=== PATIENT | female | born 1945 | race Caucasian/White ===

== ENCOUNTER → 2017-12-28 08:33 | Outpatient (CLI) | payer MEDICARE, OTHER, SELFPAY ==
--- NOTE | 2017-12-28 08:45 | RAD_ITS ---
STUDY: X-RAY - ESOPHAGUS (BARIUM SWALLOW) WITH FLUOROSCOPY REASON FOR EXAM: Female, 72 years old. Chronic dysphasia. TECHNIQUE: 20 view(s) of the esophagus were obtained following swallowing of barium. FLUOROSCOPY TIME (if supplied): (0:28) minutes/seconds COMPARISON: None. FINDINGS: There is no demonstrated esophageal foreign body. There is no demonstrated stricture or mucosal abnormality. Normal gastroesophageal junction, without a demonstrated hiatal hernia. There is atherosclerotic calcification of the aortic arch with tortuosity of the descending aorta. Normal visualized pulmonary parenchyma. There are diffuse degenerative changes of the visualized thoracic spine. RAD/Esophagus Only IMPRESSION: Normal plain film x-ray examination (barium swallow) of the esophagus. Electronically Signed: Jhon Mccollum MD at 11:01 EST Tel [phone], Service support ,
== END ==
PROVIDERS: Family Provider Internal Medicine; PCP Internal Medicine; Visit Provider Otolaryngology Otolaryngology/Facial Plastic Surgery
DX: R05 Cough (principal)
CPT/HCPCS: 74220

== ENCOUNTER → 2018-03-11 10:20 | Outpatient (CLI) | payer MEDICARE, OTHER, SELFPAY ==
--- NOTE | 2018-03-11 10:23 | US_ITS ---
STUDY: THYROID ULTRASOUND REASON FOR EXAM: Female, 72 years old. Nodules. TECHNIQUE: Ultrasound evaluation of the thyroid was performed with real-time and static clark-scale imaging. COMPARISON: None. FINDINGS: RIGHT LOBE: The right lobe of the thyroid gland measures 5.5 x 2.6 x 2.0 cm. There is a heterogeneous echotexture. Several tiny nodules are seen no larger than 6 mm. Most of these are primarily cystic. LEFT LOBE: The left lobe of the thyroid gland measures 5.3 x 2.1 x 1.4 cm. There is a heterogeneous echotexture. Multiple tiny nodules no larger than 6 mm but there is also a 1.2 cm complex nodule. ISTHMUS: The isthmus measures 4 mm . The regional lymph nodes are normal. US/Thyroid IMPRESSION: Bilateral heterogeneous thyroid with several tiny nodules are also a 1.2 cm left thyroid lobe nodule for which annual follow-up is recommended. Electronically Signed: Judson Hines MD at 16:55 EDT , Service support ,
== END ==
PROVIDERS: Family Provider Internal Medicine; PCP Internal Medicine; Visit Provider Internal Medicine
DX: E04.1 Nontoxic single thyroid nodule (principal)
CPT/HCPCS: 76536

== ENCOUNTER → 2018-03-22 08:06 | Outpatient (CLI) | payer MEDICARE, OTHER, SELFPAY ==
--- NOTE | 2018-03-22 | ASPIG_PTH ---
PATIENT: Arcadio CASPER LOC: [facility]#:[id number] AGE/SX: 79/F ROOM: RE03/22/[address]: Dr. Marlo Rodarte MD : 1945 BED: DIS: SPEC #: [id number] RECD: 03/22/18 13:13 STATUS: TIFFANIE RETroy #: [id number] DIOGO: 03/22/18 00:[address]: Marlo Rodarte DEPT: CYTOLOGY RECD BY: Silverio Juarez ENTERED: 03/22/18 13:13 SP TYPE: ASP OUT OTHR DR: Dr. Celia Coto DO Tissues: Thyroid gland, NOS Procedures: FNA Specimen Adequacy Pap Stain (control) Special Stain Group II Surgery Specimen Level IV Diff Quik Stain (control) Cell Block Cytospin Fluid Cytology Other HEADER OPERATION: Ultrasound-guided thyroid biopsy - left PRE-OP DIAGNOSIS: Left thyroid nodule TISSUE SUBMITTED: Left thyroid nodule FNA DIAGNOSIS CYTOLOGY Left thyroid nodule, ultrasound-guided FNA (smears, cytospin and cell block): Consistent with benign follicular nodule. SJ:rg 03/27/18 COMMENT The specimen is evaluated at the time of left thyroid FNA by Dr. Calvo. Immediate Evaluation: Set #1 - A few follicular cells noted. Set #2 ? Follicular cells present. Adequate for evaluation. Please make reference to previous specimen ([id number]) FNA, left thyroid nodule with diagnosis of benign, consistent with colloid nodule and ([id number]) left thyroid nodule, ultrasound-guided FNA with diagnosis of negative for malignant cells. CYTOLOGY STUDY Slides are reviewed. The specimen is adequate for evaluation. The specimen consists of benign follicular cells and colloid. CYTOLOGY GROSS Set #1 ? 3 passes - Received is 0.4 ml of bloody fluid labeled with the patient's name, and designated left thyroid. Five imprints and five paps are made from the submitted fluid and the rest is added to CytoLyt for cell block preparation. Submitted for cytology study. Set #2 ? 2 passes - Received is 0.2 ml of bloody fluid labeled with the patient's name, and designated left thyroid. Five imprints and five paps are made from the submitted fluid and the rest is added to CytoLyt for cell block preparation. Submitted for cytology study. / ANIYA:mayo 03/22/18 TC:5 CPT: 28124, 21235, 54282, 38157, 42455
--- NOTE | 2018-03-22 08:07 | US_ITS ---
STUDY: THYROID ULTRASOUND REASON FOR EXAM: Female, 72 years old. Multinodular goiter. Ultrasound guided thyroid biopsy. TECHNIQUE: Ultrasound evaluation of the thyroid was performed with real-time and static clark-scale imaging. COMPARISON: Comparison is made with prior examination dated March 11, 2018. FINDINGS: Under direct sonographic guidance, the surgeon performed 5 aspiration biopsies of the left thyroid nodule. US/US Thyroid Biopsy IMPRESSION: Successful ultrasound-guided biopsy of the left thyroid nodule. Electronically Signed: Jhon Mccollum MD at 11:26 EDT Tel [phone], Service support ,
--- NOTE | 2018-03-22 09:08 | PCM.OPRPT ---
Problem List (1) Multinodular goiter (nontoxic) Status: Acute Report of Operation Date of Procedure: 03/22/18 Pre-Operative Diagnosis: e04.2 multinodular goiter Post-Operative Diagnosis: Same Surgery/Procedure Performed:: 04158 ultrasound-guided fine-needle aspiration of dominant left thyroid nodule Type of Anesthesia:: Local Description of Procedure: Left side of her neck was ultrasound. Nodule was identified. The skin was prepped with chlorhexidine. 1% lidocaine plain was injected. Under ultrasound guidance 5 passes with a 22-gauge needle were performed. These were all immediately given to the pathologist who said that we had adequate number of follicular cells. Sterile dressings were applied. The patient tolerated the procedure well. - Admit VTE Documentation VTE Present on Admission: No VTE Mechan Device Prophylaxis: None VTE Pharm Prophylaxis ordered?: No Reason prophylaxis not ordered:: Treatment Not Indicated
== END ==
PROVIDERS: Family Provider Internal Medicine; PCP Internal Medicine; Visit Provider Surgery
DX: E04.1 Nontoxic single thyroid nodule (principal)
CPT/HCPCS: 10022; 76942; 88108; 88161; 88172; 88305; 88313

== ENCOUNTER → 2018-04-22 07:20 | Outpatient (CLI) | payer MEDICARE, OTHER, SELFPAY ==
[2018-04-22 09:58] LABS: Absolute Lymphocyte Count 2.07 X10^3/ul (0.83-4.51); Absolute Neutrophil Count 2.5 X10^3/uL (2.0-7.7); Basophil# 0.01 X10^3/uL; Basophil% 0.2 % (0-1); Eosinophils% 1.9 % (0-5); Hematocrit 40.7 % (37-47); Hemoglobin 13.4 g/dl (12.0-15.0); Lymphocyte # 2.07 X10^3/ul (4.0); Mean Corp Hgb Conc 32.9 g/gl (32-36); Mean Corpuscular Volume 91.1 fL (81-99); Mean Platelet Vol. 8.7 fl (6.2-12.0); Monocyte# 0.51 X10^3/uL; Monocyte% 9.9 % (0-10); Neutrophil # 2.48 X10^3/uL (2.7-7.7); POSITIVE COUNT NO; POSITIVE DIFFERENTIAL NO; POSITIVE MORPHOLOGY NO; Platelet Count 293 K/mm3 (150-450); RBC Distribution Width CV 12.9 % (11.6-14.6); RBC Distribution Width SD 42.5 fl (35.1-43.9); Red Blood Count 4.47 M/mm3 (4.2-5.4); White Blood Count 5.2 K/mm3 (4.4-11.0)
[2018-04-22 10:14] LABS: Hemoglobin A1c 5.4 % (4.2-6.3)
[2018-04-22 10:16] LABS: ALB/GLOB Ratio 1.1 RATIO (0.9-2.4); AST(SGOT) 15 U/L (15-37); Alanine Aminotransfer ALT/SGPT 20 U/L (13-56); Albumin, Serum 3.9 g/dL (3.2-5.0); Alkaline Phosphatase 50 U/L (45-117); Anion Gap 9 (5-15); BUN 10 mg/dL (7-18); BUN/Creat Ratio 11.7 RATIO (10-20); Calcium,Total 8.8 mg/dL (8.5-10.1); Chloride 104 mmol/L (98-107); Cholesterol 174 mg/dL (200); Creatinine, Serum 0.86 mg/dL (0.55-1.02); EST Glomerular Filtration Rate 70 mL/min (>60); Est Glom Filt Rate - Afr Amer 84 mL/min (>60); Globulin 3.4 g/dL (2.2-4.2); Glucose 85 mg/dL (74-106); High Density Lipoprotein 58 mg/dL; Potassium 3.9 mmol/L (3.5-5.1); Protein, Total 7.3 g/dL (6.4-8.2); Sodium Level 143 mmol/L (136-145); Triglycerides 76 mg/dL; Very Low Density Lipoprotein 15 mg/dL (5-40); Vitamin B12 471 pg/mL (211-911)
[2018-04-23 09:31] LABS: Hep C Antibodies 0.1 s/co ratio (0.0-0.9)
== END ==
PROVIDERS: Family Provider Internal Medicine; PCP Internal Medicine; Visit Provider Internal Medicine
DX: E78.00 Pure hypercholesterolemia, unspecified (principal); Z11.59 Encounter for screening for other viral diseases; E53.8 Deficiency of other specified B group vitamins; I10 Essential (primary) hypertension; R73.09 Other abnormal glucose
CPT/HCPCS: 36415; 80053; 80061; 82607; 83036; 85025; 86803

== ENCOUNTER → 2018-11-28 10:10 | Outpatient (CLI) | payer MEDICARE, OTHER, SELFPAY ==
--- NOTE | 2018-11-28 10:15 | BI_ITS ---
MAMMOGRAPHY - BILATERAL SCREENING REASON FOR EXAM: Female, 73 years old. Routine annual screening examination. PERTINENT HISTORY: Non-contributory. TECHNIQUE: Digital bilateral breast sancho (3D mammographic acquisition) in the CC and MLO projections. 2-D mediolateral oblique (MLO) and craniocaudad (CC) views of both breasts were obtained. CAD: Full Field Digital Mammography with Computer Added Detection was performed. COMPARISON: Comparison is made with prior examination dated October 11, 2017 and October 10, 2016. FINDINGS: Breast Composition: There are scattered areas of fibroglandular density. There are no dominant masses or suspicious calcifications. Stable benign-appearing bilateral axillary lymph nodes. No other significant abnormalities are identified. There has been no significant change since the prior study. BI/SCREENING MAMM (CAD), BILAT IMPRESSION: Stable bilateral screening mammogram. Yearly follow-up mammogram recommended. (A) ASSESSMENT CATEGORY: BIRADS Category 2: Benign. A letter regarding these results will be sent to the patient by the facility within 30 days. Approximately 10% of breast cancers are not detected by mammography. A normal mammogram should not delay biopsy of a clinically suspicious abnormality. [id number] Electronically Signed: Jhon Mccollum MD at 14:00 EST , Service support ,
== END ==
PROVIDERS: Family Provider Internal Medicine; PCP Internal Medicine; Referring Provider Internal Medicine; Visit Provider Internal Medicine
DX: Z12.31 Encounter for screening mammogram for malignant neoplasm of breast (principal)
CPT/HCPCS: 77063; 77067

== ENCOUNTER → 2019-02-07 13:45 | Outpatient (CLI) | payer SELFPAY ==
--- NOTE | 2019-02-07 13:48 | CT_ITS ---
STUDY: CT CHEST/THORAX WITHOUT CONTRAST REASON FOR EXAM: Female, 73 years old. History of hyperlipidemia. RADIATION DOSAGE (If Supplied By Facility): CTDIvol = ( 12.19 ) mGy, DLP = ( 170.66 ) mGycm TECHNIQUE: Transaxial imaging was performed without the administration of intravenous contrast material. The lung apices are not included in the [id number] Individualized dose optimization techniques were used for this CT. COMPARISON: None. FINDINGS: 12.5 mm calcified granuloma in the posterolateral periphery of the left lower lobe at the mid chest 2.5 mm noncalcified nodule seen in the anterolateral periphery of the lingula of the left upper lobe (series 3 image 14), and nearby is a 1-2 mm anterior peripheral nodule (image 15). Very minimal scarring is seen in the inferior margin of the lingula of the left upper lobe. There is a 2.5 mm nodule in the anterolateral periphery of the right lower lobe near the pleural fissure on series 3 image 9. There is a 3 mm nodule seen in the anteromedial periphery of the right middle lobe on image 4. There is no demonstrated pleural abnormality. Normal heart size and pericardium. There is calcification in the mitral valve annulus. There are calcifications of the coronary arteries. Normal mediastinum. There are calcified left hilar lymph nodes. Normal unenhanced pulmonary arteries. There is atherosclerotic calcification of the aortic root and descending thoracic aorta. There are multi-level degenerative changes of the visualized lower thoracic spine. There are multiple punctate calcified granulomata in the spleen. CT/CCTA Calcium Scoring IMPRESSION: 1. Atherosclerotic calcifications of the coronary arteries and descending thoracic aorta noted. There is calcification in the mitral valve annulus. The heart size is normal. 2. Findings a left calcified granulomatous disease. 3. Additional sub-6 mm noncalcified nodules are seen in the bilateral lung turpin, as noted. Per Fleischner criteria, in a low-risk patient these do not require specific radiographic follow-up. In a high-risk patient, one might consider follow-up in one year to document stability. Electronically Signed: Josh Mcelroy MD at 15:46 EDT , Service support ,
--- NOTE | 2019-02-07 13:48 | CT_ITS ---
STUDY: CT CHEST/THORAX WITHOUT CONTRAST REASON FOR EXAM: Female, 73 years old. History of hyperlipidemia. RADIATION DOSAGE (If Supplied By Facility): CTDIvol = ( 12.19 ) mGy, DLP = ( 170.66 ) mGycm TECHNIQUE: Transaxial imaging was performed without the administration of intravenous contrast material. The lung apices are not included in the [id number] Individualized dose optimization techniques were used for this CT. COMPARISON: None. FINDINGS: 12.5 mm calcified granuloma in the posterolateral periphery of the left lower lobe at the mid chest 2.5 mm noncalcified nodule seen in the anterolateral periphery of the lingula of the left upper lobe (series 3 image 14), and nearby is a 1-2 mm anterior peripheral nodule (image 15). Very minimal scarring is seen in the inferior margin of the lingula of the left upper lobe. There is a 2.5 mm nodule in the anterolateral periphery of the right lower lobe near the pleural fissure on series 3 image 9. There is a 3 mm nodule seen in the anteromedial periphery of the right middle lobe on image 4. There is no demonstrated pleural abnormality. Normal heart size and pericardium. There is calcification in the mitral valve annulus. There are calcifications of the coronary arteries. Normal mediastinum. There are calcified left hilar lymph nodes. Normal unenhanced pulmonary arteries. There is atherosclerotic calcification of the aortic root and descending thoracic aorta. There are multi-level degenerative changes of the visualized lower thoracic spine. There are multiple punctate calcified granulomata in the spleen. CT/Limited Chest CT w/CCTA IMPRESSION: 1. Atherosclerotic calcifications of the coronary arteries and descending thoracic aorta noted. There is calcification in the mitral valve annulus. The heart size is normal. 2. Findings a left calcified granulomatous disease. 3. Additional sub-6 mm noncalcified nodules are seen in the bilateral lung turpin, as noted. Per Fleischner criteria, in a low-risk patient these do not require specific radiographic follow-up. In a high-risk patient, one might consider follow-up in one year to document stability. Electronically Signed: Josh Mcelroy MD at 15:46 EDT , Service support ,
[2019-02-07 14:13] VITALS: BP 185/86; PULSE 68; RESP 16; O2SAT 96; BMI 29.1
--- NOTE | 2019-02-10 08:42 | CA.SCORE ---
Calcium Scoring Date of Study:: 02/07/19 Coronary Calcium Scoring: High-resolution Computed Tomographic imaging of the chest was performed on [02/07/2019], with particular attention paid to the coronary arteries. Images from the examination were analyzed for the presence and extent of coronary artery calcification , using coronary calcium quantification software. The patient tolerated the procedure well and there were no complications. The results of the coronary calcification analysis are provided below. - Findings Left Main (LM): 402 Left Anterior Descending (LAD): 11.5 Left Circumflex (LCX): 135 Right Coronary Artery (RCA): 723 Total Agatston Score: 1,271.5 Percentile Rankin - Conclusion Calcium Scoring Interpretation: Calcium Score Interpretation 0 No identifiable atherosclerotic plaque. Very low cardiovascular disease risk. <5% chance of presence coronary artery disease A Negative Examination 1-10 Minimal Plaque burden. Significant coronary artery disease very unlikely. 11-100 Mild plaque burden. Likely mild or minimal coronary atherosclerosis. 101-400 Moderate plaque burden Moderate non-obstructive coronary artery disease highly likely. Over 400 Extensive plaque burden. High likelihood of at least one significant coronary stenosis (>50% diameter) Calcium Score: >400 High likelihood of at least one significant coronary stenosis - The above is suggestive of a very high likelihood of at least one coronary artery having more than 50% percent diameter stenosis and evidence of extensive plaque burden especially in the right coronary artery distribution.
== END ==
PROVIDERS: Family Provider Internal Medicine; PCP Internal Medicine; Referring Provider Internal Medicine; Visit Provider Internal Medicine
DX: E78.5 Hyperlipidemia, unspecified (principal)
CPT/HCPCS: 75571; 76380

== ENCOUNTER → 2019-03-06 13:44 | Outpatient (CLI) | payer MEDICARE, OTHER, SELFPAY ==
[2019-02-07 14:13] VITALS: BMI 29.1
== END ==
PROVIDERS: Family Provider Internal Medicine; PCP Internal Medicine; Referring Provider Internal Medicine; Visit Provider Internal Medicine
DX: R94.31 Abnormal electrocardiogram [ECG] [EKG] (principal); E78.00 Pure hypercholesterolemia, unspecified
CPT/HCPCS: 93306

== ENCOUNTER → 2019-03-26 08:03 | Outpatient (CLI) | payer MEDICARE, OTHER, SELFPAY ==
[2019-02-07 14:13] VITALS: BMI 29.1
--- NOTE | 2019-03-26 08:05 | US_ITS ---
STUDY: THYROID ULTRASOUND REASON FOR EXAM: Female, 73 years old. Thyroid nodule. TECHNIQUE: Ultrasound evaluation of the thyroid was performed with real-time and static clark-scale imaging. COMPARISON: Comparison is made with prior examination dated March 11, 2018 and February 27, 2017. FINDINGS: RIGHT LOBE: The right lobe of the thyroid gland is slightly enlarged and measures 5.3 cm x 2.6 cm x 1.4 cm. There is a homogeneous echotexture. Stable appearance of 3 solid and cystic nodules in the right lobe. The largest measures 3 mm x 4 mm x 3 mm. LEFT LOBE: The left lobe of the thyroid gland is slightly enlarged and measures 5.4 cm x 1.9 cm x 1.6 cm. There is a homogeneous echotexture. Stable appearance of the 3 nodular densities. The largest measures 1 cm x 1 cm x 0.8 cm. This is in the lower lobe. ISTHMUS: The isthmus measures 4.0 mm. The regional lymph nodes are normal. US/Thyroid IMPRESSION: Stable examination demonstrating 3 small nodular densities in both lobes of the thyroid gland. The patient has had prior aspiration biopsy of the left thyroid nodules. Electronically Signed: Jhon Mccollum, at 10:22 EDT , Service support ,
== END ==
PROVIDERS: Family Provider Internal Medicine; PCP Internal Medicine; Referring Provider Internal Medicine; Visit Provider Internal Medicine
DX: E04.1 Nontoxic single thyroid nodule (principal)
CPT/HCPCS: 76536

== ENCOUNTER → 2019-05-29 07:50 | Outpatient (CLI) | payer MEDICARE, OTHER, SELFPAY ==
[2019-02-07 14:13] VITALS: BMI 29.1
--- NOTE | 2019-05-29 07:52 | CT_ITS ---
STUDY: CT CHEST WITH CONTRAST REASON FOR EXAM: Female, 73 years old. Chronic cough. Multiple lung nodules. RADIATION DOSAGE (If Supplied By Facility): CTDIvol = ( 11.34 ) mGy, DLP = ( 334.69 ) mGycm TECHNIQUE: Transaxial imaging was performed following intravenous administration of 100ml IV Isovue 300. Multiplanar coronal and sagittal images were reformatted. Individualized dose optimization techniques were used for this CT. COMPARISON: Prior chest CT exam of February 07, 2019 FINDINGS: The lung turpin are well expanded without consolidation, focal atelectasis or a substantial pleural effusion. There is no demonstrated pleural abnormality. A 12 mm calcified granuloma again noted in the left lower lobe. Stable 2 mm lingular nodule, image 73 series 4. Stable nearby lingular nodule 1 to 2 mm, image 75 series 4. Stable 2.5 mm noncalcified nodule in the anterolateral right lower lobe, image 66 series 4. Stable 3 mm nodule in the anterior medial right middle lobe, image 84 series 4. Normal heart and pericardium. Coronary calcifications. Small calcified subcarinal lymph nodes. Small calcified left hilar lymph nodes. Normal enhanced pulmonary arteries. Mild calcified plaque and elongation of the thoracic aorta. Normal osseous structures. Calcified granulomata of the spleen. CT/Chest WITH Contrast IMPRESSION: No acute cardiopulmonary findings or changes. Negative for consolidation, focal atelectasis, cardiomegaly or pleural effusion. Stigmata of old granulomatous disease with calcified subcarinal lymph nodes, left hilar lymph node and a pulmonary granuloma in the left lower lobe. Granulomata of the spleen. Multiple noncalcified pulmonary nodules less than 6 mm as listed above are stable from prior exam of February 07, 2019. Mild atherosclerotic changes of the aorta. Coronary calcifications. Electronically Signed: Gracie Granados MD at 16:58 EDT , Service support ,
== END ==
PROVIDERS: Family Provider Internal Medicine; PCP Internal Medicine; Referring Provider Internal Medicine; Visit Provider Internal Medicine
DX: R91.8 Other nonspecific abnormal finding of lung field (principal)
CPT/HCPCS: 71260; Q9967

== ENCOUNTER → 2019-12-02 14:47 | Outpatient (CLI) | payer MEDICARE, OTHER, SELFPAY ==
[2019-02-07 14:13] VITALS: BMI 29.1
--- NOTE | 2019-12-02 14:50 | BI_ITS ---
MAMMOGRAPHY - BILATERAL SCREENING REASON FOR EXAM: Female, 74 years old. Routine annual screening examination. PERTINENT HISTORY: Non-contributory. TECHNIQUE: Digital bilateral breast mykel (3D mammographic acquisition) in the CC and MLO projections. 2-D mediolateral oblique (MLO) and craniocaudad (CC) views of both breasts were obtained. CAD: Full Field Digital Mammography with Computer Added Detection was performed. COMPARISON: Comparison is made with prior examination dated November 28, 2018 and October 11, 2017. FINDINGS: Breast Composition: There are scattered areas of fibroglandular density. There are no dominant masses or suspicious calcifications. No other significant abnormalities are identified. There has been no significant change since the prior study. BI/SCREEN MAMM (CAD) W/MYKEL BILAT IMPRESSION: Stable bilateral screening mammogram. Yearly follow-up mammogram recommended. (A) ASSESSMENT CATEGORY: BIRADS Category 1: Negative. A letter regarding these results will be sent to the patient by the facility within 30 days. Approximately 10% of breast cancers are not detected by mammography. A normal mammogram should not delay biopsy of a clinically suspicious abnormality. [id number] Electronically Signed: Jhon Mccollum, at 12:48 EST , Service support ,
--- NOTE | 2019-12-02 15:09 | BD_ITS ---
STUDY: DUAL ENERGY X-RAY ABSORPTIOMETRY / DXA REASON FOR EXAM: Female, 74 years old. AUDIT CONSULTANT-SURGICAL EARLY AT 36 YRS OLD -- HX OF HRT FOR SHORT WHILE -- TAKES HCTZ -- DOES LITTLE EXERCISE -- FAMILY HX OF OSTEO- MOTHER -- FRANCE OF 0.5 INCH TECHNIQUE: Bone Mineral Density (BMD) measurements of lumbar spine and bilateral hips were obtained. COMPARISON: Comparison is made with prior examination dated October 11, 2017. FINDINGS: Lumbar Spine (L1-L4): g/cm2 (0.971) / T-score (-1.6) / Z-score (0.1) Findings are suggestive of osteopenia with a moderate fracture risk. Left Femur Total: g/cm2 (0.849) / T-score (-1.3) / Z-score (0.4) Left Femoral Neck: g/cm2 (0.837) / T-score (-1.4) / Z-score (0.4) Right Femur Total: g/cm2 (0.806) / T-score (-1.6) / Z-score (0.0) Right Femoral Neck: g/cm2 (0.757) / T-score (-2.0) / Z-score (0.2) The T-Scores on the most recent prior examination were: Lumbar Spine (L1-L4): There has been worsening of bone density since the previous examination. Left Femur Total: which represents a worsening of 7.3%. Right Femur Total: which represents a worsening of 8.3%. BD/Dexa Bone Density Study IMPRESSION: The patient is considered osteopenic as outlined below according to World Joni Organization (WHO) criteria with a moderate fracture risk. There has been worsening of bone density since the previous examination. Reference Information: The T-score is the number of standard deviations above or below the standard which is normal for young adults at their peak bone mineral density. The World Health Organization (WHO) interprets the T-scores as follows: Above -1 Normal bone density Between -1 and -2.5 Osteopenia Equal to / or below -2.5 Osteoporosis As a practical clinical guideline, osteopenia may be graded as follows: Mild -1 through -1.5 Moderate -1.6 through -2.0 Severe -2.1 through -2.4 The Z-score is the number of standard deviations above or below age-matched controls. A Z-score of less than -1.5 would be considered abnormal. References: 1. NIH Osteoporosis and Related Bone Diseases http://www.osteo.org 2. International Society for Clinical Densitometry http://www.iscd.org 3. National Osteoporosis Foundation http://www.nof.org Electronically Signed: Jhon Mccollum, at 16:13 EST , Service support ,
== END ==
PROVIDERS: Family Provider Internal Medicine; PCP Internal Medicine; Referring Provider Internal Medicine; Visit Provider Internal Medicine
DX: Z12.31 Encounter for screening mammogram for malignant neoplasm of breast (principal); Z78.0 Asymptomatic menopausal state
CPT/HCPCS: 77063; 77067; 77080

== ENCOUNTER → 2020-04-01 13:51 | Outpatient (CLI) | payer MEDICARE, OTHER, SELFPAY ==
[2019-02-07 14:13] VITALS: BMI 29.1
--- NOTE | 2020-04-01 13:55 | US_ITS ---
STUDY: THYROID ULTRASOUND REASON FOR EXAM: Female, 74 years old. NODULES TECHNIQUE: Ultrasound evaluation of the thyroid was performed with real-time and static clark-scale imaging. COMPARISON: Comparison is made with prior examination of March 26, 2019. FINDINGS: RIGHT LOBE: The right lobe of the thyroid gland is enlarged and measures 5.3 cm x 2.1 cm x 1.7 cm. There is a homogeneous echotexture. Stable appearance of the 3 small solid and cystic nodules in the right lobe. The largest measures 3 mm x 3 mm x 3 mm. LEFT LOBE: The left lobe of the thyroid gland is enlarged and measures 5.5 cm x 1.9 cm x 1.7 cm. There is a homogeneous echotexture. Stable appearance of the 3 nodular densities in the left lobe. The largest is in the midportion measuring 9 mm x 9 mm x 0.7 mm. This has been biopsied previously. ISTHMUS: The isthmus measures 4.0 mm. The regional lymph nodes are normal. US/Thyroid IMPRESSION: Stable examination demonstrating small bilateral thyroid nodules. Electronically Signed: Jhon Mccollum, at 14:52 EDT , Service support ,
--- NOTE | 2020-04-01 13:55 | CT_ITS ---
STUDY: CT CHEST WITHOUT CONTRAST REASON FOR EXAM: Female, 74 years old. MULTIPLE LUNG NODULES SEEN ON CT-FOLLOW UP RADIATION DOSAGE (If Supplied By Facility): CTDIvol = ( 10.43 ) mGy, DLP = ( 308.42 ) mGycm TECHNIQUE: Transaxial imaging was performed without the administration of intravenous contrast material. Multiplanar coronal and sagittal images were reformatted. Individualized dose optimization techniques were used for this CT. COMPARISON: Comparison is made with prior examination of May 29, 2019. FINDINGS: Small bilateral axillary lymph nodes. Stable 1.8 cm x 1.4 cm well-defined nodule in the subcutaneous tissues overlying the posterior aspect of the left scapula. A similar appearing nodule measuring 7 mm is seen along the posterior lateral aspect of the right hemithorax inferiorly. Stable 12 mm calcified granuloma in the left lower lobe. Stable 2 mm noncalcified nodule in the lingular segment of the left upper lobe. Stable 2.5 mm noncalcified nodule in the anterolateral right lower lobe. There is no demonstrated pleural abnormality. There are calcifications of the coronary arteries. Stable small calcified subcutaneous carinal lymph nodes as well as calcification of the left hilar node. Normal hilar regions. Normal unenhanced pulmonary arteries. Normal aorta arch and descending thoracic aorta. There are multi-level degenerative changes of the thoracic spine. There is no demonstrated abnormality of the visualized upper abdomen. CT/Chest without Contrast IMPRESSION: Stable examination. Routine annual follow-up is recommended. Electronically Signed: Jhon Mccollum, at 14:38 EDT , Service support ,
== END ==
PROVIDERS: PCP Internal Medicine; Referring Provider Internal Medicine; Visit Provider Internal Medicine
DX: R91.8 Other nonspecific abnormal finding of lung field (principal); E04.1 Nontoxic single thyroid nodule
CPT/HCPCS: 71250; 76536

== ENCOUNTER → 2020-06-25 12:29 | Outpatient (CLI) | payer MEDICARE, OTHER, SELFPAY ==
[2019-02-07 14:13] VITALS: BMI 29.1
--- NOTE | 2020-06-25 12:32 | RAD_ITS ---
STUDY: X-RAY - LEFT FOOT CLINICAL: Female, 74 years old. Fell yesterday, pain 2-3-4 MT TECHNIQUE: 3 view(s) of the foot. COMPARISON: None. FINDINGS: Normal talus, calcaneus, and tarsal bones. Normal visualized subtalar, talonavicular, calcaneocuboid, tarsal and tarsometatarsal articulations. Nondisplaced transverse fracture through the distal shaft of the second third and fourth metatarsals. Normal metatarsophalangeal joint of the great toe. Normal tibial and fibular sesamoid bones. Normal interphalangeal joint of the great toe. Normal phalanges of the great toe. Normal second through fifth metatarsophalangeal joints. Normal interphalangeal joints and phalanges of the lesser toes. Soft tissue swelling. RAD/Foot min 3 Views IMPRESSION: Nondisplaced transverse fractures through the distal shafts of the second third and fourth metatarsals. Soft tissue swelling. Electronically Signed: Jhon Mccollum, at 12:54 EDT , Service support ,
[2020-06-25 13:56] LABS: ALB/GLOB Ratio 1.2 RATIO (0.9-2.4); AST(SGOT) 8 U/L (15-37); Alanine Aminotransfer ALT/SGPT 16 U/L (13-56); Albumin, Serum 4.1 g/dL (3.2-5.0); Alkaline Phosphatase 59 U/L (45-117); Anion Gap 6 (5-15); BUN 15 mg/dL (7-18); BUN/Creat Ratio 17.6 RATIO (10-20); Calcium,Total 9.4 mg/dL (8.5-10.1); Chloride 99 mmol/L (98-107); Creatinine, Serum 0.85 mg/dL (0.55-1.02); EST Glomerular Filtration Rate 69 mL/min (>60); Est Glom Filt Rate - Afr Amer 84 mL/min (>60); Globulin 3.5 g/dL (2.2-4.2); Glucose 91 mg/dL (74-106); Protein, Total 7.6 g/dL (6.4-8.2); Sodium Level 137 mmol/L (136-145)
== END ==
PROVIDERS: PCP Internal Medicine; Referring Provider Internal Medicine; Visit Provider Internal Medicine
DX: M79.672 Pain in left foot (principal); E87.5 Hyperkalemia; R55 Syncope and collapse
CPT/HCPCS: 73630; 80053; 84484

== ENCOUNTER → 2020-07-02 09:54 | Outpatient (CLI) | payer MEDICARE, OTHER, SELFPAY ==
[2020-06-25 13:10] VITALS: BMI 29.1
[2020-07-01 09:57] VITALS: BMI 29.1
--- NOTE | 2020-07-02 09:58 | ECHOD_ITS ---
Reason For Study: Near Syncope Procedure This was a 2D Doppler, Color Flow transthoracic echocardiogram. The study was technically difficult. Contrast injection was performed. Exam performed in department. Left Ventricle Normal LV size. The estimated ejection fraction is 60 %. No evidence for diastolic dysfunction. No regional wall motion abnormalities noted. Right Ventricle Normal RV size. Normal systolic function. Atria Normal left atrium. Normal right atrium. No doppler evidence for ASD. Mitral Valve There is moderate mitral annular calcification. There is no mitral valve stenosis. No mitral valve insufficiency. Tricuspid Valve There is no tricuspid stenosis. Trivial tricuspid valve insufficiency. Unable to estimate RV systolic pressure due to insufficient tricuspid regurgitant envelope. Aortic Valve Trisinus/trileaflet aortic valve. There is no aortic stenosis. Mild (1+) aortic valve insufficiency. Pulmonic Valve There is no pulmonic valvular stenosis. Trivial pulmonic valve insufficiency identified. Great Vessels Normal aortic root. Pericardium/Pleural No pericardial effusion. Medication 22 gauge I.V. with prn adaptor inserted into right arm. Performed a rapid injection of agitated mix of 9 cc saline and 1cc air to assess for atrial septal defect. MMode/2D Measurements & Calculations LVIDd: 4.3 cm IVSd: 1.3 cm Ao root diam: 3.3 cm LVIDs: 2.8 cm LVPWd: 1.1 cm LA dimension: 3.1 cm RVDd: 2.7 cm FS: 35.3 % LAV(MOD-bp): 35.4 ml LA A4 area: 13.7 cm2 RA A4 area: 11.6 cm2 LAV(MOD-bp) Indexed: 19.4 ml/m2 LAV(MOD-sp2): 39.2 ml LAV(MOD-sp4): 32.2 ml Time Measurements MV dec time: 0.31 sec Doppler Measurements & Calculations MV E max luiz: 69.0 cm/sec Lat Peak E' Luiz: 7.2 cm/sec Med Peak E' Luiz: 7.6 cm/sec MV A max luiz: 105.2 cm/sec E/E' lat: 9.5 E/E' med: 9.1 MV E/A: 0.66 MV V2 max: 105.3 cm/sec MV P1/2t max luiz: 70.6 cm/sec Ao V2 max: 138.9 cm/sec MV max P.4 mmHg MV P1/2t: 102.7 msec Ao max P.7 mmHg MV V2 mean: 54.6 cm/sec MV dec slope: 201.4 cm/sec2 MV mean P.4 mmHg MV V2 VTI: 26.5 cm MVA(P1/2t): 2.1 cm2 AI max luiz: 357.8 cm/sec LV V1 max: 124.5 cm/sec PA V2 max: 79.6 cm/sec AI max P.2 mmHg LV V1 max P.2 mmHg AI dec slope: 256.8 cm/sec2 AI P1/2t: 408.1 msec Interpretation Summary The estimated ejection fraction is 60 %. No evidence for diastolic dysfunction. Mild (1+) aortic valve insufficiency. Ordering Physician: Celia Coto Referring Physician: Celia Coto Performed By: Steve Taylor RCS
== END ==
PROVIDERS: PCP Internal Medicine; Referring Provider Internal Medicine; Visit Provider Internal Medicine
DX: R55 Syncope and collapse (principal)
CPT/HCPCS: 93225; 93226; 93306; A4216

== ENCOUNTER → 2020-07-29 06:32 | Outpatient (CLI) | payer MEDICARE, OTHER, SELFPAY ==
[2020-07-21 15:27] VITALS: BMI 27.4
--- NOTE | 2020-07-29 11:47 | STRESSREP ---
Stress Test Report Pharmacologic myocardial perfusion stress test. 74-year-old lady with a history of chest pain. Stress protocol: Resting EKG demonstrates normal sinus rhythm with a rate of 77 bpm normal intervals are noted resting blood pressure is 120/76 mmHg. 0.4 mg of regadenoson was infused per usual protocol followed Intravenous saline flush injection continuous EKG monitoring was performed. The maximum heart rate attained was 96 bpm which was 65% of max impacted heart rate the maximum workload was 1 metabolic equivalent. At rest there were no ST or T wave changes noted to suggest abnormal flow reserve at peak infusion nonspecific ST-T wave changes were noted did not meet the criteria for ischemia. The final blood pressure was 110/52. Myocardial perfusion protocol. 11.4 mCi of technetium 99m sestamibi was injected at rest. 0.4 mg of regadenoson was infused per usual protocol. At peak infusion 33.0 mCi of technetium 99m sestamibi was injected stress images were obtained stress and rest images were reconstructed and compared in the short axis vertical long and horizontal long axis. Gated images were also obtained Perfusion SPECT analysis: Review of the stress images demonstrate normal uptake of tracer noted in all areas of the myocardium the resting images similarly demonstrate normal uptake of tracer noted in all areas of the myocardium. No areas of reversibility are noted suggest ischemia no previous infarct is noted. Gated SPECT analysis: The gated ejection fraction is 85%. Conclusion: Normal pharmacologic myocardial perfusion stress test. Preserved ejection fraction.
== END ==
PROVIDERS: PCP Internal Medicine; Referring Provider Internal Medicine Cardiovascular Disease; Visit Provider Internal Medicine Cardiovascular Disease
DX: I25.10 Atherosclerotic heart disease of native coronary artery without angina pectoris (principal)
CPT/HCPCS: 78452; 93017; A9500; A4216; J2785

== ENCOUNTER → 2020-12-06 07:50 | Outpatient (CLI) | payer MEDICARE, OTHER, SELFPAY ==
[2020-07-21 15:27] VITALS: BMI 27.4
--- NOTE | 2020-12-06 07:54 | BI_ITS ---
MAMMOGRAPHY - BILATERAL SCREENING REASON FOR EXAM: Female, 75 years old. Routine annual screening examination. PERTINENT HISTORY: Non-contributory. TECHNIQUE: Digital bilateral breast mykel (3D mammographic acquisition) in the CC and MLO projections. 2-D mediolateral oblique (MLO) and craniocaudad (CC) views of both breasts were obtained. CAD: Full Field Digital Mammography with Computer Added Detection was performed. COMPARISON: Comparison is made with prior examination dated 12/02/2019 and 11/28/2018. FINDINGS: Breast Composition: There are scattered areas of fibroglandular density. There are no dominant masses or suspicious calcifications. Stable small benign-appearing bilateral axillary lymph nodes. No other significant abnormalities are identified. There has been no significant change since the prior study. BI/SCRN MAMM (CAD)W/MYKEL BILAT IMPRESSION: Stable bilateral screening mammogram. Yearly follow-up mammogram recommended. (A) ASSESSMENT CATEGORY: BIRADS Category 2: Benign. A letter regarding these results will be sent to the patient by the facility within 30 days. Approximately 10% of breast cancers are not detected by mammography. A normal mammogram should not delay biopsy of a clinically suspicious abnormality. [id number] Electronically Signed: Jhon Mccollum MD at 8:43 EST , Service support ,
== END ==
PROVIDERS: PCP Internal Medicine; Referring Provider Internal Medicine; Visit Provider Internal Medicine
DX: Z12.31 Encounter for screening mammogram for malignant neoplasm of breast (principal)
CPT/HCPCS: 77063; 77067

== ENCOUNTER 2020-12-13 08:30 | Outpatient (RCR) | payer MEDICARE, OTHER, SELFPAY ==
[2020-07-21 15:27] VITALS: BMI 27.4
--- NOTE | 2020-11-03 14:44 | HP.PTEVAL_ITS ---
Patient's Visit Information Arcadio CASPER is a 75 year old F referred to Physical Therapy by Dr. Katy Rodríguez DPM with a diagnosis of L 2/3/4 metatarsal fx and walkign difficulty. Date of Evaluation: 11/03/20 Physical Therapist: Keyon Rock DPT, OCS, CSCS - Visit Plan Frequency: 2-3x /Week Duration: 4-6 Weeks Plan: 2-3x/week for 4-6 weeks for. 1. PROM end range toe flexion and ext L, mobs. 2. strength L ankle focussing gastroc/soleus for push off. 3. gait training for balance challenges and confidence. 4. General functional ex progressing to [facility] for general LE strength. - Subjective Fell fainting in 100 degree weather and broke 3 bones in L foot. These are her first broken bones. That was 06/24/20. Hasn't been doing much since. Was in boot. Hurt the outside of both feet. In boot until 10/01/20 weaned out of it. Pain now is only with descending steps and is mildly uncomfortable. ALso attempting to do yoga bending toes up hurts. Not limping otherwise but seems to be flat footed more. Pain is 0-2/10 during activitiy and comfortable the rest of the time. Comfortable at night and sleeping well. Activities are not being avoiided but is worried about getting on ground and being more active in garden. Not employed. Basic aDLs are going well. Feels unsteady and was not that way prior to this fainting spell. No recent falls. No neuropathy. No spinning dizzyness. - Pain L lateral oot Pain Intensity (Out of 10): 0 Pain Intensity Range: 0, 2 - Objective Gait is I without AD but avoids end stance phase on L push off due to weakness. Trasnfers I without UE from chair. steps reciprocal with rail to descend and some pain and diminished eccentric control landing on L LE. On and off floor hesitantly but I without support, care with L toe extension in trasnition.s. Weakness is obvious in L gastroc/soleus as cannot heel raise on L. 3+ strenfgth L and 4+ R. Inv/ev L 4 adn R 4+ DF 4+ B. Knee strength flexiona nd ext 4 B. Metatarsals moving well B, toes stiff at end range of flexiona nd ext with some pain at this end range but motion WFL. Sensation LE WNL to gross light touch. reflexes 2/3 patella and achilles. Big toe strength flexion adn ext 4- and painful slightly midfoot with resisted flexion. - Balance Scores Functional Gait Assessment Score: 27 % Disability: 10.0000 - Goals Goal 1:: Single leg heel raise L to help with push off in gait pattern. Goal Time Frame: 4-6 Weeks Goal 2:: Descend steps without pain landing on L otes comfortably Goal Time Frame: 4-6 Weeks Goal 3:: I approp HEP to ensure gardening go smoothly in spring. - Rehabilitation Potential Physical Therapy Diagnosis: s/p MT fx and walking difficulty resuting. Rehabilitation Potential: Good - Anticipated Interventions Patient/Client Instruction: Educate patient on: Condition, Plan of Care For the Purpose of:: To increase ROM, To improve muscle performance and motor function, To increase tolerance to activity/condition/position, To improve gait and locomotor functions Therapeutic Exercise to Include: Strength training, Flexibilty training, Gait and locomotor training, Passive ROM, Active ROM For the Purpose of:: To decrease pain, To improve muscle performance and motor function, To increase tolerance to activity/condition/position, To improve ability of physical actions for home/community/work/leisure Manual Therapy Techniques to Include: Mobilization, Passive ROM For the Purpose of:: To decrease pain, To increase ROM Thank you for the opportunity to evaluate your patient. For Medicare and Medicare HMO plans, please review the plan of care and approve it. It will need to be FAXED BACK to us at [phone] for Medicare purposes. For Medicare only, by signing this I certify the plan of care. Please let me know if there are questions or concerns regarding this plan of care. Physician Signature: Date:
--- NOTE | 2020-11-23 13:30 | HP.PTREVAL ---
Dr. Katy Rodríguez, DPM, It has been my pleasure to treat Arcadio CASPER over the last 7 visits for L 2/3/4 metatarsal fx and walkign difficulty. Please see the progress note below for an update on the physical therapy plan of care! Subjective: Better...I can go down stairs now but it still doesn't feel great. Less foot slap. Sleep is OK. Activities are normal but admittedly iactive in winter. Looking forward to gardening adn getting on and off floor. Still feels weak. To doctor in 3 weeks. Wants to continue therapy 3 more weeks. Objective/Function: walks normal pushing off with L. Steps are reciprocal with one rail and decent eccentric lowering L. Still weak L heel raise compared to R. Functional ROM ankle. Toe ext still slightly tight especially with weight through it. Plan Plan: 2x/week for 3 weeks... 1. continue toe mobs PROM to end range extension, WB stretches of this. 2. Functional strength proprioception and L ankle. 3. Functional strength LE and core, on and off floor etc to get ready for gardening adn progress to HEP. Goals Goal 1:: Single leg heel raise L to help with push off in gait pattern. Goal Time Frame: 4-6 Weeks Goal Progress: Progressing Goal 2:: Descend steps without pain landing on L otes comfortably Goal Time Frame: 4-6 Weeks Goal Progress: Goal Met Goal 3:: I approp HEP to ensure gardening go smoothly in spring. Goal Progress: Goal Met Goal 4:: kneel on toes aand get up off floor with out pain. Goal Time Frame: 2-4 Weeks Goal Progress: NEW GOAL Anticipated Interventions Patient/Client Instruction: Educate patient on: Condition, Plan of Care For the Purpose of:: To increase ROM, To improve muscle performance and motor function, To increase tolerance to activity/condition/position, To improve gait and locomotor functions Therapeutic Exercise to Include: Strength training, Flexibilty training, Gait and locomotor training, Passive ROM, Active ROM For the Purpose of:: To decrease pain, To improve muscle performance and motor function, To increase tolerance to activity/condition/position, To improve ability of physical actions for home/community/work/leisure Manual Therapy Techniques to Include: Mobilization, Passive ROM For the Purpose of:: To decrease pain, To increase ROM Please do not hesitate to contact me at [phone] by phone or if you have questions or concerns regarding this new plan of care! Sincerely, [place]on Rock, DPT, OCS, CSCS
--- NOTE | 2020-12-13 09:14 | HP.PTDCSUM ---
It has been my pleasure to treat Arcadio CASPER referred by Dr. Katy Rodríguez DPM, with the diagnosis of L 2/3/4 metatarsal fx and walkign difficulty for a total of 12 visit(s). Discharge Date: 12/13/20 Please see the following information for a summary of their discharge status. Subjective: Pretty good. Pain is not an issue. Workout feels good. Getting stronger. Sleep is fine. Actviies are pretty nromal. L lateral oot Pain Intensity (Out of 10): 0 % Improvement: 90 Objective/Function: Walks normal, steps normal. Getting on and off the floor is hesitant but able with assist of table in stoop and through half kneel without any support. Doing well overall. Goal 1:: Single leg heel raise L to help with push off in gait pattern. Goal Progress: Goal Met Goal 2:: Descend steps without pain landing on L otes comfortably Goal Progress: Goal Met Goal 3:: I approp HEP to ensure gardening go smoothly in spring. Goal Progress: Goal Met Goal 4:: kneel on toes aand get up off floor with out pain. Goal Progress: Goal Met Plan: d/c If there are questions or concerns regarding this patient's physical therapy, please feel free to call me at [phone]. Thank you for the referral of this patient. Sincerely, Keyon Rock, DPT, OCS, CSCS
== END 2020-12-13 19:00 | disposition home or self-care (01) ==
LOC: PT 08:30
PROVIDERS: PCP Internal Medicine; Referring Provider Podiatrist; Visit Provider Podiatrist
DX: S92.322D Displaced fracture of second metatarsal bone, left foot, subsequent encounter for fracture with routine healing (principal); S92.332D Displaced fracture of third metatarsal bone, left foot, subsequent encounter for fracture with routine healing; S92.342D Displaced fracture of fourth metatarsal bone, left foot, subsequent encounter for fracture with routine healing; R26.89 Other abnormalities of gait and mobility
CPT/HCPCS: 97035; 97110; 97161; 97164

== ENCOUNTER → 2021-04-15 08:04 | Outpatient (CLI) | payer MEDICARE, OTHER, SELFPAY ==
[2021-02-28 14:28] VITALS: BMI 27.4
== END ==
LOC: LAB.FUTURE 08:07 → LAB 08:09
PROVIDERS: PCP Internal Medicine; Referring Provider Nurse Practitioner; Visit Provider Nurse Practitioner
DX: E87.5 Hyperkalemia (principal)
CPT/HCPCS: 36415; 84132

== ENCOUNTER → 2021-04-27 13:25 | Outpatient (CLI) | payer MEDICARE, OTHER, SELFPAY ==
[2021-02-28 14:28] VITALS: BMI 27.4
--- NOTE | 2021-04-27 13:29 | US_ITS ---
STUDY: THYROID ULTRASOUND REASON FOR EXAM: Female, 75 years old. Thyroid nodule for follow-up. TECHNIQUE: Ultrasound evaluation of the thyroid was performed with real-time and static clark-scale imaging. COMPARISON: April 01, 2020. March 26, 2019. FINDINGS: RIGHT LOBE: The right lobe of the thyroid gland is enlarged and measures 5.3 x 2.3 x 1.5 cm. There is a homogeneous echotexture. Solid and/or cystic nodules mid pole measuring 0.3 x 0.3 x 0.2 cm, 0.4 x 0.3 x 0.3 cm and 0.3 x 0.3 x 0.3 cm. LEFT LOBE: The left lobe of the thyroid gland is enlarged and measures 5.2 x 2.0 x 1.3 cm. There is a homogeneous echotexture. Upper cystic, mid solid and lower pole solid nodules respectively, measuring 0.3 x 0.3 x 0.2 cm, 0.9 x 0.7 x 0.5 cm and 0.5 x 0.5 x 0.4 cm. As per the security rep report April 01, 2020 the mid pole nodule has been biopsied. ISTHMUS: The isthmus measures 3 mm. . The regional lymph nodes are normal. US/Thyroid IMPRESSION: Thyromegaly not significantly changed. Bilateral thyroid nodules not significantly changed since February 2019. Electronically Signed: Jason Tran MD at 5:46 EDT , Service support ,
--- NOTE | 2021-04-27 13:29 | CT_ITS ---
STUDY: CT CHEST WITHOUT CONTRAST REASON FOR EXAM: Female, 75 years old. MULTIPLE NODULES RADIATION DOSAGE (If Supplied By Facility): CTDIvol = ( 11.66 ) mGy, DLP = ( 372.99 ) mGycm TECHNIQUE: Transaxial imaging was performed without the administration of intravenous contrast material. Multiplanar coronal and sagittal images were reformatted. Individualized dose optimization techniques were used for this CT. COMPARISON: Comparison is made with prior study dated 04/01/2020. FINDINGS: Stable small bilateral axillary lymph nodes. Once again, there is a 1.8 cm x 1.4 cm well-defined hypodense nodule in the subcutaneous tissues overlying the posterior aspect of the left scapula. A similar appearing nodule measuring 7 mm also seen along the posterolateral aspect of the right hemithorax inferiorly. Stable 1.2 cm calcified granuloma in the lateral aspect of the left lower lobe as seen on axial image #42. Stable 2 mm noncalcified nodule in the lingular segment of the left upper lobe. Stable 2.5 mm noncalcified nodule in the anterior lateral aspect of the right lower lobe. There is no demonstrated pleural abnormality. There are calcifications of the coronary arteries. Normal mediastinum. Normal hilar regions. Normal unenhanced pulmonary arteries. Normal aorta arch and descending thoracic aorta. There are multi-level degenerative changes of the thoracic spine. There is no demonstrated abnormality of the visualized upper abdomen. CT/Chest without Contrast IMPRESSION: Stable examination. Electronically Signed: Jhon Mccollum MD at 15:49 EDT , Service support ,
== END ==
PROVIDERS: PCP Internal Medicine; Referring Provider Internal Medicine; Visit Provider Internal Medicine
DX: E04.1 Nontoxic single thyroid nodule (principal); R91.8 Other nonspecific abnormal finding of lung field
CPT/HCPCS: 71250; 76536

== ENCOUNTER 2021-06-03 07:20 | Observation (INO) | payer MEDICARE, OTHER, SELFPAY ==
[2021-02-28 14:28] VITALS: BMI 27.4
[2021-06-03] VITALS (18 sets, daily range): BP systolic 127–182; BP diastolic 63–97; PULSE 67–88; RESP 15–22; TEMP 36.4–36.6; O2SAT 85–100; BMI 28.8; BMI 28.3
--- NOTE | 2021-06-03 07:28 | ED.RN ---
DR. MATT INFORMED OF PT PRESENTING SX ON TRIAGE. STROKE ALERT INITIATED.
--- NOTE | 2021-06-03 07:31 | RAD_ITS ---
EXAM DESCRIPTION: PORTABLE AP CHEST CLINICAL HISTORY: 75 years Female, Neuro deficit, acute, stroke suspected Neuro deficit, acute, stroke suspected COMPARISON: Previous CT scan of the chest obtained on 04/27/2021 FINDINGS: The thorax is intact. The heart and mediastinum appear to be within normal limits. The lungs appear to be well areated without evidence of pneumonic consolidation or pleural effusion. Calcified granulomas again seen in the left midlung which is unchanged. RAD/Chest 1 View IMPRESSION: No acute pathology. Electronically Signed: Earnest Machuca DO at 9:13 EDT Tel , Service support ,
--- NOTE | 2021-06-03 07:31 | EKG12_ITS ---
Test Reason : Blood Pressure : / mmHG Vent. Rate : 077 BPM Atrial Rate : 077 BPM P-R Int : 184 ms QRS Dur : 088 ms QT Int : 394 ms P-R-T Axes : 063 001 049 degrees QTc Int : 445 ms Normal sinus rhythm Normal ECG Confirmed by LAURA GORDON, AMANDA ([id number]), editor & co founder KELVIN LEWIS ([id number]) on 06/06/2021 9:10:04 AM Referred By: SHAKA Confirmed By:AMANDA SANCHEZ MD
--- NOTE | 2021-06-03 07:31 | CT_ITS ---
EXAM DESCRIPTION: Unenhanced CT scan of the head CLINICAL HISTORY: 75 years Female, Neuro deficit, acute, stroke suspected COMPARISON: None. TECHNIQUE: A CT scan of the head was performed without IV contrast in the axial plane. Coronal and sagittal reconstruction images were also obtained. This exam was performed according to our departmental dose-optimization program, which includes automated exposure control, adjustment of the mA and/or kV according to patient size and/or use of iterative reconstruction technique. FINDINGS: The gavi, medulla, and cerebellum appear to be normal. The ventricles and sulci are normal in size and shape. The basal ganglia appear to be normal. The inner and outer tables of the skull are intact. The frontal, ethmoid, maxillary, and sphenoid sinuses are normal. The mastoid air cells are normal. CT/STROKE Brain/Head without Cont IMPRESSION: Normal CT scan of the head. N.B. : The above Results were Read Back by Earnest Machuca DO to MARCIA MATT and understanding confirmed on 06/03/2021 07:49:53 (ET). Pending Final Proof Editing
--- NOTE | 2021-06-03 07:33 | EDS_ITS ---
HPI History of Present Illness Chief Complaint: Weakness Informant: patient Narrative Narrative: Patient woke up this morning at approximately 530. When she went to the restroom she realized that her right hand/arm coordination was not quite correct. She had no trouble walking. She has no trouble understanding or speaking. Vision is fine. She denies any pain anywhere in her body. There is no tingling that she notices. She states her hand strength seems okay but her coordination of the right upper extremity is off. Once she was holding the phone, she was able to text with her thumb but it was harder to get the phone in her hand. Nothing makes this better or worse. She went to bed at about 1030 last night and was normal at that time so that is her last known well time. She has never had symptoms like this before. She does have stroke risk factors of cholesterol and blood pressure. She has never had stroke symptoms or prior known stroke. [facility] Medical History (Updated 06/03/21 @ 09:[address] Pedro Matt MD) Allergic rhinitis Asthma Atherosclerotic heart disease of [place] coronary artery without angina pectoris Essential (primary) hypertension GERD (gastroesophageal reflux disease) Hematuria Hemorrhoids Hyperlipidemia Metatarsal fracture Multinodular goiter (nontoxic) Osteopenia Thyroid nodule Home Medications cholecalciferol (vitamin D3) 50 mcg (2,000 unit) capsule 4,000 unit PO QDAY cap 03/19/18 [History Last Taken Unknown] cyanocobalamin (vitamin B-12) 1,000 mcg capsule 1,000 mcg PO QDAY 03/19/18 [History Last Taken Unknown] amlodipine 2.5 mg tablet 2.5 mg PO DAILY tab 07/21/20 [History Last Taken Unknown] hydrochlorothiazide 25 mg tablet 25 mg PO DAILY tab 07/21/20 [History Last T aken Unknown] simvastatin 10 mg tablet 10 mg PO DAILY 02/28/21 [History Last Taken Unknown] Allergy/AdvReac Type Severity Reaction Status Date / Time estrogens, conjugated AdvReac myalgias Verified 06/03/21 07:21 [From Premarin] Family History Father Heart disease Hypertension Cancer Skin CAD (coronary artery disease) CABG Sister Heart disease Hypertension Cancer Skin CAD (coronary artery disease) CABG valve Sister Heart disease Mother Heart disease CAD (coronary artery disease) Other Myocardial infarction Surgical History Hx of hysterectomy Hx of tonsillectomy Social History Smoking Status: Never smoker second hand exposure: No alcohol intake: never substance use type: does not use caffeine: Yes what type of physical activity do you participate in: walking frequency: 3-4 times per week seatbelt use: always ROS ROS ED Constitutional Constitutional ED: Denies chills or fever(s) Eyes Eyes: Denies blurry vision or change in vision ENT ENT ED: Denies rhinorrhea or sore throat Cardiovascular Cardiovascular: Denies chest pain or palpitations Respiratory/Chest Respiratory/Chest: Denies dyspnea Gastrointestinal Gastrointestinal: Denies nausea or vomiting Genitourinary Genitourinary ED: Denies hematuria Musculoskeletal Musculoskeletal: Denies back pain or neck pain Integumentary Denies rash Neurologic Neurologic: Reports weakness; Denies headache(s) or paresthesias Hematologic/Lymphatic Hematologic/Lymphatic: Denies easy bleeding or easy bruising Allergic/Immunologic Allergic/Immunologic ED: Denies urticaria EXAM Physical Exam Const Vital Signs: 06/03/21 07:21 06/03/21 07:30 06/03/21 07:37 Temperature 97.5 F L Temperature Source Temporal Pulse Rate 81 81 Respiratory Rate 16 16 Respiratory Effort Respiratory Pattern Blood Pressure 182/80 H 167/87 H Blood Pressure Mean 114 113 Pulse Ox 96 96 96 Oxygen Delivery Method Room Air Room Air Room Air 06/03/21 07:51 06/03/21 07:54 06/03/21 08:15 Temperature Temperature Source Pulse Rate 79 79 Respiratory Rate 22 H 16 Respiratory Effort Normal Non-Labored Respiratory Pattern Normal Blood Pressure 168/81 H 163/97 H Blood Pressure Mean 110 119 Pulse Ox 100 98 Oxygen Delivery Method Room Air 06/03/21 09:02 Temperature Temperature Source Pulse Rate 69 Respiratory Rate 16 Respiratory Effort Respiratory Pattern Blood Pressure 165/71 H Blood Pressure Mean 102 Pulse Ox 98 Oxygen Delivery Method Positive well nourished and well developed General Appearance ED: well developed and NAD HEENT Reports moist mucous membranes Eyes PERRL and EOMs intact bilaterally Eyes Narrative: Visual turpin normal by confrontation. Neck supple Chest Wall inspection of chest normal Resp normal respiratory effort and clear to auscultation bilaterally Auscultation: diminished lung sounds Cardio Rate: regular rate Rhythm: regular rhythm GI normal to inspection, nondistended, normoactive bowel sounds, soft to palpation and non-tender Bladder / Kidney Exam: other Back/Spine no CVA tenderness Neuro oriented x3 Sensorium / Orientation: alert Psych mental status grossly normal Skin Rashes: no rashes STROKE Vital Signs/Narrative: Vital Signs Temp Pulse Resp BP Pulse Ox 06/03/21 08:15 79 16 163/97 H 98 06/03/21 07:51 79 22 H 168/81 H 100 06/03/21 07:37 96 06/03/21 07:30 81 16 167/87 H 96 06/03/21 07:21 97.5 F L 81 16 182/80 H 96 NIHSS Initial: 1a Level of Consciousness: 0 1b LOC Questions (Score 2 if aphasic/stupor): 0 1c LOC Commands (Only score 1st attempt): 0 2 Best Gaze (If aphasic, use reflexive mvmts.): 0 3 Visual: 0 4 Facial Palsy: 0 5 Motor Arm Right (UN = amputation/fusion): 0 5 Motor Arm Left: 0 6 Motor Leg Right: 0 6 Motor Leg Left: 0 7 Limb ataxia (Only + if out of proportion): 1 (Some past pointing and discoordination with right upper extremity.) 8 Sensory (Aphasia/stupor=0 or 1, coma=2): 0 9 Best Language: 0 10 Dysarthria (mute, coma=2, intubated=UN): 0 11 Extinction and Inattention (only scored if +): 0 Total Score: 1 MDM MDM MDM Narrative Medical decision making narrative: We had teleneurology evaluate her. They agree that this likely is stroke but due to the timing and severity it is not appropriate to TPA. Her CT and CT angiogram showed no acute process. Blood work including CBC and electrolytes show no marked abnormalities. She has minimally low calcium that I do not think is the cause of her symptoms. With her new stroke symptoms, no anticoagulation including no aspirin, I think she does warrant further evaluation. I have hospitalist on page. Lab Data Labs: Laboratory Results - last 24 hr 06/03/21 06/03/21 06/03/21 07:30 07:45 07:45 WBC 5.3 RBC 3.98 L Hgb 12.4 Hct 37.4 MCV 94.0 MCH 31.2 MCHC 33.2 RDW Std Deviation 44.0 H RDW Coeff of Ruslan 12.6 Plt Count 253 MPV 8.6 Immature Gran % (Auto) 0.400 Neut % (Auto) 58.4 Lymph % (Auto) 30.3 Morton % (Auto) 9.2 Eos % (Auto) 1.3 Baso % (Auto) 0.4 Absolute Neuts (auto) 3.1 Absolute Lymphs (auto) 1.61 Nucleated RBC % 0 PT 14.1 INR 1.2 APTT 31.2 Sodium Potassium Chloride Carbon Dioxide Anion Gap BUN Creatinine Estim Creat Clear Calc Est GFR (MDRD) Af Amer Est GFR (MDRD) Non-Af BUN/Creatinine Ratio Glucose Calcium Magnesium Troponin I High Sens POC Glucose 90 06/03/21 06/03/21 07:45 07:45 WBC RBC Hgb Hct MCV MCH MCHC RDW Std Deviation RDW Coeff of Ruslan Plt Count MPV Immature Gran % (Auto) Neut % (Auto) Lymph % (Auto) Morton % (Auto) Eos % (Auto) Baso % (Auto) Absolute Neuts (auto) Absolute Lymphs (auto) Nucleated RBC % PT INR APTT Sodium 138 Potassium 3.8 Chloride 102 Carbon Dioxide 31.0 Anion Gap 5 BUN 14 Creatinine 0.72 Estim Creat Clear Calc 44.41 Est GFR (MDRD) Af Amer 102 Est GFR (MDRD) Non-Af 84 BUN/Creatinine Ratio 19.5 Glucose 93 Calcium 8.2 L Magnesium 2.2 Troponin I High Sens 5.5 POC Glucose Radiography Diagnostic Testing: Radiology Impression Brain CT 06/03/21 07:31 IMPRESSION: Normal CT scan of the head. N.B. : The above Results were Read Back by Earnest Machuca DO to PEDRO MATT and understanding confirmed on 06/03/2021 07:49:53 (ET). Pending Final Proof Editing ADDENDUM: 06/03/21 0759 IMPRESSION: Normal CT scan of the head. N.B. : The above Results were Read Back by Earnest Machuca DO to PEDRO MATT and understanding confirmed on 06/03/2021 07:49:53 (ET). Pending Final Proof Editing ADDENDUM: 06/03/21 0807 IMPRESSION: Normal CT scan of the head. N.B. : The above Results were Read Back by Earnest Machuca DO to PEDRO MATT and understanding confirmed on 06/03/2021 07:49:53 (ET). Electronically Signed: Eanrest Machuca DO at 7:53 EDT Tel , Service support , Chest X-Ray 06/03/21 07:31 IMPRESSION: No acute pathology. Electronically Signed: Earnest Machuca DO at 9:13 EDT Tel , Service support , Head/Neck CTA 06/03/21 07:39 IMPRESSION: 1.Normal CTA of the Head 2.Normal CTA of the Vertebral Arteries. 3.Minimal, 5% stenosis of the right internal carotid artery at it''s origin. 4.Minimal, 10% stenosis of the left internal carotid artery at it''s origin. N.B. : The above Results were Read Back by Earnest Machuca DO to Pedro Matt MD, and understanding confirmed on 06/03/2021 08:14:29 (ET). Electronically Signed: Earnest Machuca DO at 8:16 EDT Tel , Service support , ADDENDUM: 06/03/21 0823 IMPRESSION: 1.Normal CTA of the Head 2.Normal CTA of the Vertebral Arteries. 3.Minimal, 5% stenosis of the right internal carotid artery at it''s origin. 4.Minimal, 10% stenosis of the left internal carotid artery at it''s origin. N.B. : The above Results were Read Back by Earnest Machuca DO to Pedro Matt MD, and understanding confirmed on 06/03/2021 08:14:29 (ET). Electronically Signed: Earnest Machuca DO at 8:16 EDT Tel , Service support , EKG Initial EKG: Comments: EKG done for work-up of stroke symptoms read by me shows a normal sinus rhythm with rate of 77. Mild irregular baseline but no ectopy. No acute ST elevation or depression. TX interval, QRS duration and QTC are normal. Discharge Plan Dx/Rx/DC Orders Clinical Impression: Acute CVA (cerebrovascular accident) Disposition Disposition: Acute Care Hospital [facility] Discharge Date/Time: 06/03/21 10:23
[2021-06-03 07:35] LABS: Bedside Glucose 90 mg/dL (70-110)
--- NOTE | 2021-06-03 07:39 | CT_ITS ---
EXAM DESCRIPTION: CT of the head and neck CLINICAL HISTORY: 75 years Female, CVA COMPARISON: Unenhanced CT scan of the head obtained immediately prior to this study. TECHNIQUE: A CTA of the Head and Neck was performed first without than with IV contrast, in the axial plane. Multiplanar CT reconstruction images were performed and later 3D volumetric reconstruction images were obtained This exam was performed according to our departmental dose-optimization program, which includes automated exposure control, adjustment of the mA and/or kV according to patient size and/or use of iterative reconstruction technique. FINDINGS: The pre and post contrast CT images of the head were obtained and reviewed. The gavi, medulla, and cerebellum appear to be normal. The cerebral hemispheres and the ventricles and cerebral sulci are normal. The basal ganglia are normal. No enhancing masses or lesions are seen. Bone scanning windows were reviewed and show the inner and outer tables of the skull to be intact. The frontal, ethmoid, maxillary, and sphenoid sinuses are normal. Post contrast CTA images were then reviewed. Posterior Cerebral Circulation: The V4 segments of the vertebral arteries show a normal appearing left vertebral artery. There is a vascular variation where the right vertebral artery supplies only the right PICA.. The basilar artery is normal. The [right and left] anterior inferior cerebellar artery is normal. The anterior superior cerebellar arteries are seen at their origins and are normal. The P1, P2, and P3 segments of the [right and left] posterior cerebral arteries are normal. Anterior Cerebral Circulation: There is minimal concentric calcific arteriosclerosis involving the cavernous carotid arteries at the supraclinoid carotid arteries appear to be normal.. The A1 segments of the [right and left] anterior cerebral arteries are normal. The anterior communicating artery are normal. The M1 segments of the [right and left] cerebral arteries are normal. The bifurcations of the middle cerebral arteries are normal. Cerebral Venous Circulation: The superior sagittal sinus is normal. The inferior sagittal sinus is normal. The internal cerebral veins, great vein of Edi, straight sinus, and torcula are normal. The transverse sinuses and sigmoid sinuses are normal. The CT scan of the neck, and CTA of the carotid and vertebral arteries was performed. The base of the skull, the mandible and the lung apices are normal. The cervical vertebra are normal and are in good position and alignment. Cervical Soft Tissues. The parotid space, buccal space, creative lead space, retropharnygeal space, parapharyngeal space, parapharyngeal mucosal space, and visceral space are normal. The carotid space is normal. The thyroid is normal. The thoracic inlet is normal. The supraclavicular space is normal. The nasopharynx and torus tuberous, the oropharynx and epiglottis, and the hypopharynx and aryepiglottic folds are normal. The true vocal cords and false cords are normal. The cervical trachea is normal. CTA images of the neck were reviewed and show a normal branch pattern of the aortic arch with a normal branch pattern. The right inominate artery is normal. The right subclavian artery is normal. The left common carotid artery is normal at its origin. The left subclavian artery is normal at its origin. On the right side, the right vertebral artery originates from the right subclavian artery. The V1, V2, V3, and V4 segments of the right vertebral artery are normal. The right common carotid artery is smooth. The right carotid bifurcation contains calcific arteriosclerosis causing minimal (less than 5% by NASA criteria) stenosis of the origin of the right internal carotid artery. The right external carotid artery is normal. The cervical and petrous portions of the right internal carotid artery are normal. On the left side, the left vertebral artery originates from the left subclavian artery. The V1,V2, V3, and V4 segments of the left vertebral artery are normal. The left common carotid artery is smooth. The left carotid bifurcation is normal. The left external carotid artery is normal. The origins of the left internal carotid artery contains calcific arteriosclerosis causing minimal,(less than 10% by NASA criteria), stenosis of the origin of the left internal carotid artery and the cervical and petrous portions of the left internal carotid artery are normal. These results were called to Dr. Pedro Lopez in ER at 8:[address]/STROKE CTA Head AND Neck W/Con IMPRESSION: 1.Normal CTA of the Head 2.Normal CTA of the Vertebral Arteries. 3.Minimal, 5% stenosis of the right internal carotid artery at it''s origin. 4.Minimal, 10% stenosis of the left internal carotid artery at it''s origin. N.B. : The above Results were Read Back by Earnest Machuca DO to Pedro Lopez MD, and understanding confirmed on 06/03/2021 08:14:29 (ET). Electronically Signed: Earnest Machuca DO at 8:16 EDT Tel , Service support ,
[2021-06-03 08:01] LABS: Absolute Lymphocyte Count 1.61 X10^3/uL (0.83-4.51); Absolute Neutrophil Count 3.1 X10^3/uL (2.0-7.7); Basophil# 0.02 X10^3/uL; Basophil% 0.4 % (0-1); Eosinophil# 0.07 X10^3/uL; Eosinophils% 1.3 % (0-5); Hematocrit 37.4 % (37-47); Hemoglobin 12.4 g/dL (12.0-15.0); Lymphocyte # 1.61 X10^3/ul (0.83-4.51); Lymphocyte % 30.3 % (19-41); Mean Corp Hgb Conc 33.2 g/dL (32-36); Mean Corpuscular Hgb 31.2 pg (27.0-32.0); Mean Platelet Vol. 8.6 fl (6.2-12.0); Monocyte# 0.49 X10^3/uL; Monocyte% 9.2 % (0-10); NRBC Flagged by Analyzer 0 % (0-5); Neutrophil % 58.4 % (47-70); Platelet Count 253 K/mm3 (150-450); RBC Distribution Width CV 12.6 % (11.6-14.6); Red Blood Count 3.98 M/mm3 (4.2-5.4); White Blood Count 5.3 K/mm3 (4.4-11.0)
[2021-06-03 08:13] LABS: International Normalized Ratio 1.2; Prothrombin Time (Protime)PT. 14.1 SECONDS (11.7-14.9)
[2021-06-03 08:14] LABS: Partial Thromboplast Time 31.2 Seconds (24.1-36.2)
[2021-06-03 08:18] LABS: Anion Gap 5 (5-15); BUN 14 mg/dL (7-18); BUN/Creat Ratio 19.5 RATIO (10-20); Calcium,Total 8.2 mg/dL (8.5-10.1); Chloride 102 mmol/L (98-107); Creatinine, Serum 0.72 mg/dL (0.55-1.02); EST Glomerular Filtration Rate 84 mL/min (>60); Est Glom Filt Rate - Afr Amer 102 mL/min (>60); Estimated Creatinine Clearance 44.41 ml/min; Glucose 93 mg/dL (74-106); Potassium 3.8 mmol/L (3.5-5.1); Sodium Level 138 mmol/L (136-145); Troponin-I HS 5.5 pg/mL (3.0-53.7)
--- NOTE | 2021-06-03 09:15 | MRI_ITS ---
STUDY: MRI BRAIN WITHOUT CONTRAST REASON FOR EXAM: Female, 75 years old. CVA, rt hand weakness TECHNIQUE: Standardized multiplanar fat and water weighted pulse sequences were obtained. COMPARISON: CT 06/03/2021 FINDINGS: Normal size of the ventricles and extra-axial spaces for the patient''s age. Normal white matter tracts of the supratentorial brain. There is no evidence for recent intracranial ischemia or other cause of cytotoxic edema on diffusion weighted imaging (DWI). Normal T2* images of the brain without demonstrated susceptibility artifact. There is no demonstrated hemosiderin stain. Normal bilateral basal ganglia. Normal thalami. There is no extra-axial fluid accumulation. Normal flow voids within the major intracranial circulation suggesting patency by spin echo criteria. Normal sella turcica, pituitary gland, infundibular stalk, optic chiasm and hypothalamus. Normal tectal plate and pineal gland. Normal midbrain, gavi and medulla. Normal cerebellum. Normal basal cisterns. Normal bilateral temporal bones. Normal bilateral internal auditory canals. There are bilateral ocular lens implants with otherwise normal intraorbital contents. Normal visualized paranasal sinuses. Normal calvarium and skull base. Normal visualized soft tissue structures. Normal visualized upper cervical spine. MRI/Brain without Contrast IMPRESSION: Normal unenhanced MRI of the brain. No acute infarct. Electronically Signed: Cameron Ayala MD at 16:25 EDT Tel , Service support ,
--- NOTE | 2021-06-03 09:15 | ECHOCS_ITS ---
Reason For Study: TIA/CVA Procedure This was a 2D Doppler, Color Flow transthoracic echocardiogram. The study was technically difficult. Contrast injection was performed. Bubble study performed. Exam performed portable in ED. Left Ventricle Normal left ventricle. The estimated ejection fraction is EF 55-60 %. Right Ventricle Normal right ventricle. Normal systolic function. Atria Normal left atrium. Normal right atrium. Mitral Valve There is mild mitral annular calcification. Trivial mitral valve insufficiency. Tricuspid Valve Normal tricuspid valve. Trivial tricuspid valve insufficiency. Aortic Valve Aortic sclerosis, no stenosis. Mild (1+) aortic valve insufficiency. Pulmonic Valve The pulmonic valve is not well visualized. Great Vessels Normal aortic root. Pericardium/Pleural No pericardial effusion. Medication Diluted definity 2ml given slow IV push to enhance endocardial definition. Performed a rapid injection of agitated mix of 9 cc saline and 1cc air to assess for atrial septal defect. MMode/2D Measurements & Calculations LVIDd: 4.0 cm IVSd: 0.85 cm Ao root diam: 3.5 cm LVIDs: 2.2 cm LVPWd: 1.0 cm FS: 43.9 % LAV(MOD-bp): 46.4 ml LA A4 area: 17.3 cm2 RA A4 area: 12.5 cm2 LAV(MOD-bp) Indexed: 24.9 ml/m2 LAV(MOD-sp2): 44.9 ml LAV(MOD-sp4): 46.5 ml Time Measurements MV dec time: 0.25 sec Doppler Measurements & Calculations MV E max luiz: 76.6 cm/sec Lat Peak E' Luiz: 5.9 cm/sec Med Peak E' Luiz: 6.3 cm/sec MV A max luiz: 117.6 cm/sec E/E' lat: 12.9 E/E' med: 12.1 MV E/A: 0.65 MV V2 max: 125.2 cm/sec MV P1/2t max luiz: 90.5 cm/sec Ao V2 max: 126.0 cm/sec MV max P.3 mmHg MV P1/2t: 86.3 msec Ao max P.3 mmHg MV V2 mean: 70.6 cm/sec MV dec slope: 307.1 cm/sec2 MV mean P.3 mmHg MV V2 VTI: 30.9 cm MVA(P1/2t): 2.5 cm2 LV V1 max: 112.9 cm/sec PA V2 max: 80.9 cm/sec LV V1 max P.1 mmHg ECHO/Echo Complete W/ Contrast Interpretation Summary The estimated ejection fraction is EF 55-60 %. No changes fom prior Echo in 07/18 Ordering Physician: Derrick Watters Referring Physician: Celia Coto Performed By: Steve Taylor RCS
[2021-06-03] MEDS: Aspirin 325 MG Tablet PO (09:43)
[2021-06-03 12:28] LABS: Magnesium 2.2 mg/dL (1.6-2.6)
[2021-06-03] MEDS: LORazepam 2 MG/ML Syringe 0.5 MG IV (13:47)
[2021-06-03] MEDS: 0.9% Saline Lock 10 ML Syringe IV (13:47)
--- NOTE | 2021-06-03 14:15 | HP.PCM.HOS_ITS ---
HPI - General General Date of Admission: 06/03/21 HPI Narrative Arcadio CASPER, is a 75 F who presents presents to the hospital with right arm weakness. She was normal last night when she went to bed around 10:30 PM and woke up this morning around 6 AM with right arm weakness. She was evaluated in the ER and was found to have an NIH of around 2 by [facility] neurology. She obviously was not a candidate for TPA secondary to her last known well of last night. On my evaluation she denies having any weakness at this time. She denies having any weakness episodes in the past and is generally in good health. In the ER CT of the head and neck was unremarkable for any large vessel obstruction. [facility] Medical History (Updated 06/03/21 @ 09:[address] Marcia Lopez MD) Allergic rhinitis Asthma Atherosclerotic heart disease of [place] coronary artery without angina pectoris Essential (primary) hypertension GERD (gastroesophageal reflux disease) Hematuria Hemorrhoids Hyperlipidemia Metatarsal fracture Multinodular goiter (nontoxic) Osteopenia Thyroid nodule Home Medications cholecalciferol (vitamin D3) 50 mcg (2,000 unit) capsule 4,000 unit PO QDAY cap 03/19/18 [History Last Taken Unknown] cyanocobalamin (vitamin B-12) 1,000 mcg capsule 1,000 mcg PO QDAY 03/19/18 [History Last Taken Unknown] amlodipine 2.5 mg tablet 2.5 mg PO DAILY tab 07/21/20 [History Last Taken Unknown] hydrochlorothiazide 25 mg tablet 25 mg PO DAILY tab 07/21/20 [History Last Taken Unknown] simvastatin 10 mg tablet 10 mg PO DAILY 02/28/21 [History Last Taken Unknown] Allergy/AdvReac Type Severity Reaction Status Date / Time estrogens, conjugated AdvReac myalgias Verified 06/03/21 07:21 [From Premarin] Family History Father Heart disease Hypertension Cancer Skin CAD (coronary artery disease) CABG Sister Heart disease Hypertension Cancer Skin CAD (coronary artery disease) CABG valve Sister Heart disease Mother Heart disease CAD (coronary artery disease) Other Myocardial infarction Surgical History Hx of hysterectomy Hx of tonsillectomy Social History Smoking Status: Never smoker second hand exposure: No alcohol intake: never substance use type: does not use caffeine: Yes what type of physical activity do you participate in: walking frequency: 3-4 times per week seatbelt use: always ROS Constitutional Constitutional: Denies chills, fatigue, fever(s) or malaise Eyes Eyes: Denies blurry vision ENT HEENT: Denies headache(s) or nasal discharge Cardiovascular Cardiovascular: Denies chest pain, dyspnea on exertion or syncope Respiratory/Chest Respiratory/Chest: Denies cough, shortness of breath at rest or shortness of breath with exertion Gastrointestinal Gastrointestinal: Denies constipation, diarrhea, nausea or vomiting Genitourinary Genitourinary: Denies dysuria Neurologic Neurologic: Reports focal weakness; Denies numbness or tremor(s) Psychiatric Psychiatric: Denies anxiety or depression Vital Signs Vital Signs Vital Signs: 06/03/21 07:21 06/03/21 07:30 06/03/21 07:37 Temperature 97.5 F L Temperature Source Temporal Pulse Rate 81 81 Respiratory Rate 16 16 Respiratory Effort Respiratory Depth Respiratory Pattern Blood Pressure 182/80 H 167/87 H Blood Pressure Mean 114 113 Blood Pressure Source Blood Pressure Position Blood Pressure Location Pulse Ox 96 96 96 Oxygen Delivery Method Room Air Room Air Room Air 06/03/21 07:51 06/03/21 07:54 06/03/21 08:15 Temperature Temperature Source Pulse Rate 79 79 Respiratory Rate 22 H 16 Respiratory Effort Normal Non-Labored Respiratory Depth Respiratory Pattern Normal Blood Pressure 168/81 H 163/97 H Blood Pressure Mean 110 119 Blood Pressure Source Blood Pressure Position Blood Pressure Location Pulse Ox 100 98 Oxygen Delivery Method Room Air 06/03/21 09:02 06/03/21 09:37 06/03/21 10:40 Temperature 97.6 F L 97.5 F L Temperature Source Oral Oral Pulse Rate 69 68 77 Respiratory Rate 16 15 18 Respiratory Effort Respiratory Depth Respiratory Pattern Blood Pressure 165/71 H 167/74 H 170/76 H Blood Pressure Mean 102 105 107 Blood Pressure Source Monitor Blood Pressure Position Semi-Fowlers Blood Pressure Location Left Arm Pulse Ox 98 98 98 Oxygen Delivery Method Room Air Room Air 06/03/21 10:49 06/03/21 11:00 06/03/21 11:22 Temperature Temperature Source Pulse Rate 71 Respiratory Rate Respiratory Effort Normal Non-Labored Respiratory Depth Normal Respiratory Pattern Normal Blood Pressure Blood Pressure Mean Blood Pressure Source Blood Pressure Position Blood Pressure Location Pulse Ox 97 Oxygen Delivery Method Room Air Room Air 06/03/21 13:46 Temperature 97.9 F Temperature Source Oral Pulse Rate 70 Respiratory Rate 18 Respiratory Effort Respiratory Depth Respiratory Pattern Blood Pressure 137/72 H Blood Pressure Mean 93 Blood Pressure Source Monitor Blood Pressure Position Semi-Fowlers Blood Pressure Location Left Arm Pulse Ox 97 Oxygen Delivery Method Room Air Weight Weight: 170 lb Body Mass Index (BMI) 28.3 Physical Exam Const alert, oriented x3 and no apparent distress General Appearance: cooperative HEENT normocephalic and moist oral mucous membranes Eyes PERRL, EOMs intact bilaterally and conjunctivae normal Neck supple and no JVD Resp normal respiratory effort, no retractions, no use of accessory muscles and clear to auscultation bilaterally Auscultation: Negative for crackles, rales, rhonchi or wheezes Cardio regular rate, regular rhythm, S1 normal heart sound, S2 normal heart sound and no murmurs GI soft to palpation, non-tender and non-distended; Negative for hepatosplenomegaly Extremity no clubbing, cyanosis or edema Skin no rashes or lesions noted Neuro no focal motor deficits and no sensory deficits noted Psych affect normal Appearance: appropriate Results Lab / Micro Data Result Diagrams: 06/03/21 07:45 06/03/21 07:45 Labs: Laboratory Results - last 24 hr 06/03/21 07:30: POC Glucose 90 06/03/21 07:45: WBC 5.3, RBC 3.98 L, Hgb 12.4, Hct 37.4, MCV 94.0, MCH 31.2, MCHC 33.2, RDW Std Deviation 44.0 H, RDW Coeff of Ruslan 12.6, Plt Count 253, MPV 8.6, Immature Gran % (Auto) 0.400, Neut % (Auto) 58.4, Lymph % (Auto) 30.3, [place] % (Auto) 9.2, Eos % (Auto) 1.3, Baso % (Auto) 0.4, Absolute Neuts (auto) 3.1, Absolute Lymphs (auto) 1.61, Nucleated RBC % 0 06/03/21 07:45: PT 14.1, INR 1.2, APTT 31.2 06/03/21 07:45: Sodium 138, Potassium 3.8, Chloride 102, Carbon Dioxide 31.0, Anion Gap 5, BUN 14, Creatinine 0.72, Estim Creat Clear Calc 44.41, Est GFR (MDRD) Af Amer 102, Est GFR (MDRD) Non-Af 84, BUN/Creatinine Ratio 19.5, Glucose 93, Calcium 8.2 L, Troponin I High Sens 5.5 06/03/21 07:45: Magnesium 2.[address] 06/03/21 07:31 IMPRESSION: Normal CT scan of the head. N.B. : The above Results were Read Back by Earnest Machuca DO to MARCIA LOPEZ and understanding confirmed on 06/03/2021 07:49:53 (ET). Pending Final Proof Editing ADDENDUM: 06/03/21 0759 IMPRESSION: Normal CT scan of the head. N.B. : The above Results were Read Back by Earnest Machuca DO to MARCIA LOPEZ and understanding confirmed on 06/03/2021 07:49:53 (ET). Pending Final Proof Editing ADDENDUM: 06/03/21 0807 IMPRESSION: Normal CT scan of the head. N.B. : The above Results were Read Back by Earnest Machuca DO to MARCIA LOPEZ and understanding confirmed on 06/03/2021 07:49:53 (ET). Electronically Signed: Earnest Machuca DO at 7:53 EDT Tel , Service support , Chest X-Ray 06/03/21 07:31 IMPRESSION: No acute pathology. Electronically Signed: Earnest Machuca DO at 9:13 EDT Tel , Service support , Head/Neck CTA 06/03/21 07:39 IMPRESSION: 1.Normal CTA of the Head 2.Normal CTA of the Vertebral Arteries. 3.Minimal, 5% stenosis of the right internal carotid artery at it''s origin. 4.Minimal, 10% stenosis of the left internal carotid artery at it''s origin. N.B. : The above Results were Read Back by Earnest Machuca DO to Marcia Lopez MD, and understanding confirmed on 06/03/2021 08:14:29 (ET). Electronically Signed: Earnest Machuca DO at 8:16 EDT Tel , Service support , ADDENDUM: 06/03/21 0823 IMPRESSION: 1.Normal CTA of the Head 2.Normal CTA of the Vertebral Arteries. 3.Minimal, 5% stenosis of the right internal carotid artery at it''s origin. 4.Minimal, 10% stenosis of the left internal carotid artery at it''s origin. N.B. : The above Results were Read Back by Earnest Machuca DO to Marcia Lopez MD, and understanding confirmed on 06/03/2021 08:14:29 (ET). Electronically Signed: Earnest Machuca DO at 8:16 EDT Tel , Service support , Echocardiogram 06/03/21 09:15 Interpretation Summary The estimated ejection fraction is EF 55-60 %. No changes fom prior Echo in 07/18 ____ Ordering Physician: Derrick Watters Referring Physician: Celia Coto Performed By: Steve Taylor RCS Assessment & Plan Assessment/Plan (1) Acute CVA (cerebrovascular accident): PLAN: 1. CVA rule out/HTN/HLD -Echo was unremarkable, MRI is pending continue with other stroke stroke protocol initiatives -CTA of the head and neck were unremarkable -Continue with aspirin and Lipitor -We will hold her home blood pressure medications in favor of permissive hyp ertension DVT: Ambulation Charges/Coding Visit Charges OBSV E&M: 89524 Initial observation care L2
[2021-06-03] MEDS: Atorvastatin Calcium 80 MG Tablet PO (20:08)
[2021-06-04 02:55] VITALS: PULSE 61
[2021-06-04 03:00] VITALS: BP 116/63; PULSE 66; RESP 16; TEMP 36.4; O2SAT 98
[2021-06-04 06:10] LABS: Absolute Lymphocyte Count 2.11 X10^3/uL (0.83-4.51); Absolute Neutrophil Count 3.7 X10^3/uL (2.0-7.7); Basophil# 0.02 X10^3/uL; Basophil% 0.3 % (0-1); Eosinophil# 0.11 X10^3/uL; Eosinophils% 1.7 % (0-5); Hematocrit 40.9 % (37-47); Hemoglobin 13.4 g/dL (12.0-15.0); Lymphocyte # 2.11 X10^3/ul (0.83-4.51); Lymphocyte % 32.3 % (19-41); Mean Corp Hgb Conc 32.8 g/dL (32-36); Mean Corpuscular Hgb 30.9 pg (27.0-32.0); Mean Corpuscular Volume 94.2 fL (81-99); Mean Platelet Vol. 8.8 fl (6.2-12.0); Monocyte# 0.59 X10^3/uL; NRBC Flagged by Analyzer 0 % (0-5); Neutrophil # 3.69 X10^3/uL (2.7-7.7); Neutrophil % 56.5 % (47-70); Platelet Count 272 K/mm3 (150-450); RBC Distribution Width CV 12.8 % (11.6-14.6); RBC Distribution Width SD 44.3 fl (35.1-43.9); Red Blood Count 4.34 M/mm3 (4.2-5.4); White Blood Count 6.5 K/mm3 (4.4-11.0)
[2021-06-04 07:05] VITALS: PULSE 61
[2021-06-04 07:13] LABS: Anion Gap 5 (5-15); BUN 11 mg/dL (7-18); BUN/Creat Ratio 14.5 RATIO (10-20); Calcium,Total 8.9 mg/dL (8.5-10.1); Chloride 103 mmol/L (98-107); Cholesterol 117 mg/dL (200); Creatinine, Serum 0.76 mg/dL (0.55-1.02); EST Glomerular Filtration Rate 79 mL/min (>60); Est Glom Filt Rate - Afr Amer 95 mL/min (>60); Estimated Creatinine Clearance 44.41 ml/min; Glucose 83 mg/dL (74-106); High Density Lipoprotein 56 mg/dL; Potassium 4.3 mmol/L (3.5-5.1); Sodium Level 139 mmol/L (136-145); Triglycerides 67 mg/dL; Very Low Density Lipoprotein 13 mg/dL (5-40)
[2021-06-04] MEDS: Aspirin 81 MG TAB.CHEW PO (08:00)
--- NOTE | 2021-06-04 09:46 | PCM.DC ---
Discharge Instructions Diet Discharge Diet: Low fat / Low cholesterol Activity Discharge Activity: Return to Normal Activity Dressing / Incision Call your doctor if you observe: Fever of 101 or Higher, Shortness of breath, Dizziness, Swelling in the ankles, Chest pain and Increased palpitations (irregular heartbeat) Follow Up Care Test Results: Test results from this visit will be discussed in further detail at your follow-up appointment, if applicable. Discharge Plan Admission Admit Date/Time: 06/03/21 09:15 Attending Provider: Derrick Watters Primary Care Provider: Celia Coto Instructions Patient Instructions: ED TIA: Transient Ischemic Attack Discharge Orders/Prescriptions Prescriptions: New atorvastatin 80 mg Tablet 80 mg PO QHS Qty: 30 RF: 0 aspirin 81 mg Tablet,Chewable 81 mg PO DAILY@0800 Qty: 30 RF: 0 Continued cholecalciferol (vitamin D3) 2,000 unit capsule 4,000 unit PO QDAY RF: 0 cyanocobalamin (vitamin B-12) 1,000 mcg capsule 1,000 mcg PO QDAY RF: 0 hydrochlorothiazide 25 mg tablet 25 mg PO DAILY RF: 0 amlodipine 2.5 mg tablet 2.5 mg PO DAILY RF: 0 Discontinued simvastatin 10 mg tablet 10 mg PO DAILY RF: 0 Referrals / Follow Up: Celia Coto DO [Primary Care Provider] - In 1 Week Bao Murillo MD [NON-STAFF] - Within 2 Weeks Disposition Disposition (needs filled in before D/C Order can be placed): Home, Self Care
--- NOTE | 2021-06-04 10:10 | CASEMGMT ---
RAZIA CM in to discuss FLETCHER form with patient. RN CM explained FLETCHER form, patient voiced understanding. Pt signed form and filed in chart. Pt provided with a copy of signed FLETCHER form. Patient had no further questions or concerns at this time.
[2021-06-04 10:12] VITALS: BP 115/61; PULSE 68; RESP 14; TEMP 36.6; O2SAT 96
[2021-06-04 10:29] VITALS: BMI 28.3
--- NOTE | 2021-06-04 11:15 | PCM.DC.SUM ---
Providers Date of Admission: 06/03/21 Primary Care Physician: Dr. Celia Coto DO Reason For Visit: CVA Diagnosis Discharge Diagnosis (1) Acute CVA (cerebrovascular accident): Status: Acute Code(s): I63.9 - Cerebral infarction, unspecified Medications at Discharge Home Medications cholecalciferol (vitamin D3) 50 mcg (2,000 unit) capsule 4,000 unit PO QDAY cap 03/19/18 cyanocobalamin (vitamin B-12) 1,000 mcg capsule 1,000 mcg PO QDAY 03/19/18 amlodipine 2.5 mg tablet 2.5 mg PO DAILY tab 07/21/20 hydrochlorothiazide 25 mg tablet 25 mg PO DAILY tab 07/21/20 aspirin 81 mg PO DAILY@0800 #30 tab 06/04/21 atorvastatin 80 mg PO QHS #30 tab 06/04/21 Hospital Course Operations None Procedures 2-D Echocardiogram Summary of Care Provided Minutes Spent on Discharge: 35 Hospital Course: Per HPI: Arcadio CASPER, is a 75 F who presents presents to the hospital with right arm weakness. She was normal last night when she went to bed around 10:30 PM and woke up this morning around 6 AM with right arm weakness. She was evaluated in the ER and was found to have an NIH of around 2 by [facility] neurology. She obviously was not a candidate for TPA secondary to her last known well of last night. On my evaluation she denies having any weakness at this time. She denies having any weakness episodes in the past and is generally in good health. In the ER CT of the head and neck was unremarkable for any large vessel obstruction. Hospital Course: 1. CVA rule out/HTN/[id number]-bcnj-old female presented to the hospital with right arm weakness which has resolved. Check that a TIA, MRI was unremarkable for stroke. Added aspirin and Lipitor to her home-going medication regimen. She denies any symptoms today and would like to go home. I did discuss with her the risks and benefits of discharge and she expressed understanding of those risks. CTA of the head and neck were unremarkable. I do recommend that she follow-up with neurology as an outpatient as well as her PCP in 3 to 5 days. Echo was unremarkable. Physical Exam Const alert, oriented x3 and no apparent distress General Appearance: cooperative HEENT normocephalic and moist oral mucous membranes Eyes PERRL, EOMs intact bilaterally and conjunctivae normal Neck supple and no JVD Resp normal respiratory effort, no retractions, no use of accessory muscles and clear to auscultation bilaterally Auscultation: Negative for crackles, rales, rhonchi or wheezes Cardio regular rate, regular rhythm, S1 normal heart sound, S2 normal heart sound and no murmurs GI soft to palpation, non-tender and non-distended; Negative for hepatosplenomegaly Extremity no clubbing, cyanosis or edema Skin no rashes or lesions noted Neuro no focal motor deficits and no sensory deficits noted Psych affect normal Appearance: appropriate Weight / BMI Weight Weight: 170 lb Body Mass Index (BMI) 28.3 ABG / Lab / Microbiology Data Result Diagrams: 06/04/21 05:18 06/04/21 05:18 Laboratory: Laboratory Results - last 24 hr 06/03/21 07:45: Magnesium 2.2 06/04/21 05:18: WBC 6.5, RBC 4.34, Hgb 13.4, Hct 40.9, MCV 94.2, MCH 30.9, MCHC 32.8, RDW Std Deviation 44.3 H, RDW Coeff of Ruslan 12.8, Plt Count 272, MPV 8.8, Immature Gran % (Auto) 0.200, Neut % (Auto) 56.5, Lymph % (Auto) 32.3, [place] % (Auto) 9.0, Eos % (Auto) 1.7, Baso % (Auto) 0.3, Absolute Neuts (auto) 3.7, Absolute Lymphs (auto) 2.11, Nucleated RBC % 0 06/04/21 05:18: Sodium 139, Potassium 4.3, Chloride 103, Carbon Dioxide 31.0, Anion Gap 5, BUN 11, Creatinine 0.76, Estim Creat Clear Calc 44.41, Est GFR (MDRD) Af Amer 95, Est GFR (MDRD) Non-Af 79, BUN/Creatinine Ratio 14.5, Glucose 83, Calcium 8.9, Triglycerides 67, Cholesterol 117, LDL Cholesterol 48, VLDL Cholesterol 13, HDL Cholesterol 56 Radiography Diagnostic Testing: Radiology Impression Brain MRI 06/03/21 09:15 IMPRESSION: Normal unenhanced MRI of the brain. No acute infarct. Electronically Signed: Cameron Ayala MD at 16:25 EDT Tel , Service support , Echocardiogram 06/03/21 09:15 Interpretation Summary The estimated ejection fraction is EF 55-60 %. No changes fom prior Echo in 07/18 Ordering Physician: Derrick Watters Referring Physician: Celia Coto Performed By: Steve Taylor RCS D/C Instructions Discharge Diet: Low fat / Low cholesterol Call your doctor if you observe: Fever of 101 or Higher, Shortness of breath, Dizziness, Swelling in the ankles, Chest pain and Increased palpitations (irregular heartbeat) Meaningful Use Info Meaningful Use Diagnoses (Choose all that apply): None applicable Discharge Plan Admission Admit Date/Time: 06/03/21 09:15 Attending Provider: Derrick Watters Primary Care Provider: Celia Coto Instructions Patient Instructions: ED TIA: Transient Ischemic Attack Additional Instructions / Restrictions: Patient Problems: Altered Health Status related to Hospitalization Patient Goals: *Optimal Level of Health *Keep Appointments *Medication Compliance *Remain Safe Discharge Orders/Prescriptions Prescriptions: New atorvastatin 80 mg Tablet 80 mg PO QHS Qty: 30 RF: 0 aspirin 81 mg Tablet,Chewable 81 mg PO DAILY@0800 Qty: 30 RF: 0 Continued cholecalciferol (vitamin D3) 2,000 unit capsule 4,000 unit PO QDAY RF: 0 cyanocobalamin (vitamin B-12) 1,000 mcg capsule 1,000 mcg PO QDAY RF: 0 hydrochlorothiazide 25 mg tablet 25 mg PO DAILY RF: 0 amlodipine 2.5 mg tablet 2.5 mg PO DAILY RF: 0 Discontinued simvastatin 10 mg tablet 10 mg PO DAILY RF: 0 Referrals / Follow Up: Celia Coto DO [Primary Care Provider] - In 1 Week Bao Murillo MD [NON-STAFF] - Within 2 Weeks Disposition Disposition (needs filled in before D/C Order can be placed): Home, Self Care Charges/Coding Visit Charges OBSV E&M: 08426 Observation care discharge
== END 2021-06-04 10:30 | disposition home or self-care (01) ==
LOC: ED 09:02 → PCU 09:38
PROVIDERS: Admitting Provider Family Medicine; Emergency Provider Emergency Medicine; PCP Internal Medicine; Visit Provider Family Medicine
DX: I63.9 Cerebral infarction, unspecified (principal); R53.1 Weakness; K21.9 Gastro-esophageal reflux disease without esophagitis; I25.10 Atherosclerotic heart disease of native coronary artery without angina pectoris; E78.5 Hyperlipidemia, unspecified; R29.701 NIHSS score 1; I10 Essential (primary) hypertension; J45.909 Unspecified asthma, uncomplicated; Z79.899 Other long term (current) drug therapy
CPT/HCPCS: 36415; 70450; 70496; 70498; 70551; 71045; 80048; 80061; 82962; 83735; 84484; 85025; 85610; 85730; 92610; 93005; 93306; 94762; 96374; 99218; 99285; Q9957; Q9967; A4216; C8929; G0378; J3490

== ENCOUNTER → 2021-08-15 09:53 | Outpatient (CLI) | payer MEDICARE, OTHER, SELFPAY ==
[2021-08-15 12:01] LABS: Absolute Neutrophil Count 4.8 X10^3/uL (2.0-7.7); Basophil# 0.02 X10^3/uL; Basophil% 0.3 % (0-1); Eosinophil# 0.09 X10^3/uL; Eosinophils% 1.3 % (0-5); Hematocrit 43.3 % (37-47); Hemoglobin 14.6 g/dL (12.0-15.0); Lymphocyte % 24.1 % (19-41); Mean Corp Hgb Conc 33.7 g/dL (32-36); Mean Corpuscular Hgb 31.7 pg (27.0-32.0); Mean Corpuscular Volume 93.9 fL (81-99); Mean Platelet Vol. 9.2 fl (6.2-12.0); Monocyte# 0.48 X10^3/uL; Monocyte% 6.8 % (0-10); NRBC Flagged by Analyzer 0 % (0-5); Neutrophil # 4.75 X10^3/uL (2.7-7.7); Neutrophil % 67.2 % (47-70); Platelet Count 331 K/mm3 (150-450); RBC Distribution Width SD 43.7 fl (35.1-43.9); Red Blood Count 4.61 M/mm3 (4.2-5.4); White Blood Count 7.1 K/mm3 (4.4-11.0)
[2021-08-15 12:43] LABS: Vitamin D,25 Hydroxy 84.3 ng/mL
[2021-08-15 12:56] LABS: Hemoglobin A1c 5.3 % (3.8-5.6)
[2021-08-15 13:09] LABS: AST(SGOT) 16 U/L (15-37); Alanine Aminotransfer ALT/SGPT 20 U/L (13-56); Albumin, Serum 3.8 g/dL (3.2-5.0); Alkaline Phosphatase 75 U/L (45-117); Anion Gap 9 (5-15); BUN 13 mg/dL (7-18); Calcium,Total 9.3 mg/dL (8.5-10.1); Chloride 102 mmol/L (98-107); Cholesterol 118 mg/dL (200); Creatinine, Serum 0.76 mg/dL (0.55-1.02); EST Glomerular Filtration Rate 78 mL/min (>60); Est Glom Filt Rate - Afr Amer 95 mL/min (>60); Globulin 3.9 g/dL (2.2-4.2); Glucose 93 mg/dL (74-106); High Density Lipoprotein 57 mg/dL; Potassium 4.1 mmol/L (3.5-5.1); Protein, Total 7.7 g/dL (6.4-8.2); Sodium Level 138 mmol/L (136-145); Triglycerides 97 mg/dL; Very Low Density Lipoprotein 19 mg/dL (5-40)
== END ==
PROVIDERS: PCP Internal Medicine; Referring Provider Internal Medicine; Visit Provider Internal Medicine
DX: E78.00 Pure hypercholesterolemia, unspecified (principal); E55.9 Vitamin D deficiency, unspecified; R73.09 Other abnormal glucose
CPT/HCPCS: 36415; 80053; 80061; 82306; 83036; 85025

== ENCOUNTER → 2021-10-26 | Outpatient (CLI) | payer MEDICARE, OTHER, SELFPAY | END | disposition home or self-care (01) | LOC: LABSPEC 10:24 | PROVIDERS: PCP Internal Medicine; Visit Provider Internal Medicine | DX: Z20.822 Contact with and (suspected) exposure to COVID-19 (principal) | CPT/HCPCS: 87635; U0005; U0003 ==

== ENCOUNTER 2021-12-29 09:18 | Outpatient (CLI) | payer MEDICARE, OTHER, SELFPAY ==
--- NOTE | 2021-12-29 15:46 | PFTCOMP_ITS ---
COMPLETE PULMONARY FUNCTION TEST INTERPRETATION Brief HPI: Patient is a 76 year old female, currently under the care of Dr. Coto, who presents to [facility] for complete pulmonary function tests secondary to diagnosis of abnormal PFT. Respiratory therapist reports good effort and reproducible results. Interpretation: Forced expiration spirometry shows a mild large airways obstructive ventilatory defect with an FEV1 of 82% predicted. There is a significant bronchodilator response in FVC and FEV1 by strict ATS criteria. Spirograms are of good quality and plateau slowly, indicating slowly emptying areas of the lungs. The respiratory flow volume loop shows decreased expiratory flow rates at all lung volumes consistent with airway obstruction. Lung volumes by body plethysmography show a normal total lung capacity at 5.17 L, 104% predicted. All other lung volumes are within normal limits. Diffusion capacity by carbon monoxide is normal at 98% predicted. The airway resistance is elevated. No previous pulmonary function tests were available for review. Impression: Partially reversible mild large airways obstructive ventilatory defect with preserved lung volumes and diffusing capacity
== END 2021-12-29 23:59 | disposition home or self-care (01) ==
LOC: PSN 09:21
PROVIDERS: PCP Internal Medicine; Referring Provider Internal Medicine; Visit Provider Internal Medicine
DX: R94.2 Abnormal results of pulmonary function studies (principal)
CPT/HCPCS: 94060; 94726; 94729

== ENCOUNTER 2022-01-04 12:46 | Outpatient (CLI) | payer MEDICARE, OTHER, SELFPAY ==
--- NOTE | 2022-01-04 12:49 | BI_ITS ---
MAMMOGRAPHY - BILATERAL SCREENING REASON FOR EXAM: Female, 76 years old. Routine annual screening examination. PERTINENT HISTORY: Non-contributory. TECHNIQUE: Digital bilateral breast mykel (3D mammographic acquisition) in the CC and MLO projections. 2-D mediolateral oblique (MLO) and craniocaudad (CC) views of both breasts were obtained. CAD: Full Field Digital Mammography with Computer Added Detection was performed. COMPARISON: Comparison is made with prior study dated 12/06/2020 and 12/02/2019. FINDINGS: Breast Composition: There are scattered areas of fibroglandular density. There are no dominant masses or suspicious calcifications. No other significant abnormalities are identified. There has been no significant change since the prior study. BI/SCRN MAMM (CAD)W/MYKEL BILAT IMPRESSION: Stable bilateral screening mammogram. Yearly follow-up mammogram recommended. (A) ASSESSMENT CATEGORY: BIRADS Category 1: Negative. A letter regarding these results will be sent to the patient by the facility within 30 days. Approximately 10% of breast cancers are not detected by mammography. A normal mammogram should not delay biopsy of a clinically suspicious abnormality. [id number] Electronically Signed: Jhon Mccollum MD at 13:57 EST ,
--- NOTE | 2022-01-04 12:53 | BD_ITS ---
STUDY: DUAL ENERGY X-RAY ABSORPTIOMETRY / DXA REASON FOR EXAM: Female, 76 years old. [id number]. Patient is postmenopausal. TECHNIQUE: Bone Mineral Density (BMD) measurements of lumbar spine and bilateral hips were obtained. COMPARISON: Comparison is made with prior study dated 12/02/2019. FINDINGS: Lumbar Spine (L1-L4): g/cm2 (0.786) / T-score (-1.8) / Z-score (0.5) Findings are suggestive of osteopenia with a moderate fracture risk. Left Femur Total: g/cm2 (0.816) / T-score (-1.0) / Z-score (0.8) Left Femoral Neck: g/cm2 (0.645) / T-score (-1.8) / Z-score (0.2) Right Femur Total: g/cm2 (0.790) / T-score (-1.2) / Z-score (0.5) Right Femoral Neck: g/cm2 (0.613) / T-score (-2.1) / Z-score (0.0) The T-Scores on the most recent prior examination were: Lumbar Spine (L1-L4): There has been worsening of bone density since the previous examination. Left Femur Total: which represents an improvement of 3.7%. Right Femur Total: which represents an improvement of 6%. BD/Dexa Bone Density Study IMPRESSION: The patient is considered osteopenic as outlined below according to World Joni Organization (WHO) criteria with a moderate fracture risk. There has been improvement of bone density since the previous examination. Reference Information: The T-score is the number of standard deviations above or below the standard which is normal for young adults at their peak bone mineral density. The World Health Organization (WHO) interprets the T-scores as follows: Above -1 Normal bone density Between -1 and -2.5 Osteopenia Equal to / or below -2.5 Osteoporosis As a practical clinical guideline, osteopenia may be graded as follows: Mild -1 through -1.5 Moderate -1.6 through -2.0 Severe -2.1 through -2.4 The Z-score is the number of standard deviations above or below age-matched controls. A Z-score of less than -1.5 would be considered abnormal. References: 1. NIH Osteoporosis and Related Bone Diseases www osteo.org 2. International Society for Clinical Densitometry www iscd.org 3. National Osteoporosis Foundation www nof.org Electronically Signed: Jhon Mccollum MD at 13:28 EST ,
== END 2022-01-04 23:59 | disposition home or self-care (01) ==
LOC: OPBD 12:47
PROVIDERS: PCP Internal Medicine; Visit Provider Internal Medicine
DX: Z12.31 Encounter for screening mammogram for malignant neoplasm of breast (principal); Z78.0 Asymptomatic menopausal state
CPT/HCPCS: 77063; 77067; 77080

== ENCOUNTER → 2022-03-31 | Outpatient (CLI) | payer MEDICARE, OTHER, SELFPAY ==
--- NOTE | 2022-03-31 15:27 | RAD_ITS ---
STUDY: X-RAY - PELVIS AND RIGHT HIP REASON FOR EXAM: Female, 76 years old. PAIN IN R BUTTOCK TECHNIQUE: XR Hip Unilateral with Pelvis when performed; 2-3 Views COMPARISON: None. FINDINGS: There is a non-specific bowel gas pattern. There are atherosclerotic vascular calcifications of the pelvic arteries. Sclerotic lesion visualized in the region of the right trochanter. This may be a bone island. There are degenerative changes of the lumbar spine. Normal bilateral iliac wings, sacroiliac joints and visualized sacrum. Normal bilateral superior and inferior pubic rami. Normal pubic symphysis. Normal bilateral ischial tuberosities. Normal visualized femoral head. Normal acetabulum. Normal hip joint. RAD/HIP, UNI W/ Pelvis 2-3 Views IMPRESSION: No acute findings. Electronically Signed: Ajith Oates MD at 16:43 EDT Reading Location ID and State: [facility] / [place] , Service support ,
--- NOTE | 2022-03-31 15:27 | US_ITS ---
STUDY: THYROID ULTRASOUND REASON FOR EXAM: Female, 76 years old. F/U NODULES TECHNIQUE: Ultrasound evaluation of the thyroid was performed with real-time and static clark-scale imaging. COMPARISON: 04.27.21 FINDINGS: RIGHT LOBE: The right lobe of the thyroid gland measures 5.3 x 2.3 cm. There is a homogeneous echotexture. There are nodules. Nodule #1 is 4.4 x 3 x 5 mm. It is hypoechoic. Nodule 2. Is 4.1 x 2.6 x 3.2 mm. It is hypo to isoechoic. Nodule 3. Measures 3.7 x 2.9 x 4.4 mm. LEFT LOBE: The left lobe of the thyroid gland measures 5.2 x 2 cm. There is a homogeneous echotexture. There are nodules. Nodule #1 measures 4.3 x 3.2 x 4.3 mm. It is hypoechoic. Nodule 2. 6 x 3.6 x 5.9 mm. It is hypoechoic. Nodule 3. 7.2 x 3.7 x 6 x 4 mm. It is isoechoic. ISTHMUS: The isthmus measures 4 mm. US/Thyroid IMPRESSION: There are RIGHT nodules. Nodule 1 and 3 are slightly larger. This nodule is mixed cystic and solid, hyperechoic or isoechoic, [id number], smoothly marginated and contains no echogenic foci. TI-RADS points: 2. TI-RADS category: TR2. This nodule is not suspicious and no FNA or follow-up is necessary. The nodule 1 left nodules. This nodule is cystic or nearly completely cystic. TI-RADS points: 0. TI-RADS category: TR1. This nodule is benign and no FNA or follow-up is necessary. Left nodules 2 and 3. This nodule is solid or almost completely solid, hyperechoic or isoechoic, [id number], smoothly marginated and contains no echogenic foci. TI-RADS points: 3. TI-RADS category: TR3. This nodule is mildly suspicious but no FNA or follow-up is necessary given the small size of this nodule. Left Nodule 1 and 3 are slightly larger. However Left nodule 2 is smaller. Electronically Signed: Ajith Oates MD at 21:31 EDT ,
--- NOTE | 2022-03-31 15:53 | RAD_ITS ---
STUDY: X-RAY - LUMBAR SPINE REASON FOR EXAM: Female, 76 years old. PAIN IN R BUTTOCK TECHNIQUE: XR Spine Lumbar Min 4 Views COMPARISON: None FINDINGS: Normal lumbar lordosis. There is no substantial scoliosis. There is a normal alignment of the vertebrae. There is multilevel endplate spondylosis of the lumbar vertebrae. There is multi-level degenerative disc disease with multi-level disc space narrowing. There are atherosclerotic vascular calcifications. Vacuum disc phenomenon at L5-S1. The soft tissue structures are unremarkable. RAD/L/S Spine Min 4 Views IMPRESSION: Degenerative changes of the spine, as detailed above. Electronically Signed: Ajith Oates MD at 16:43 EDT ,
== END | disposition home or self-care (01) ==
LOC: US 15:25
PROVIDERS: PCP Internal Medicine; Referring Provider Internal Medicine; Visit Provider Internal Medicine
DX: M79.18 Myalgia, other site (principal); E04.1 Nontoxic single thyroid nodule
CPT/HCPCS: 72110; 73502; 76536

== ENCOUNTER → 2023-02-20 | Outpatient (CLI) | payer MEDICARE, OTHER, SELFPAY ==
--- NOTE | 2023-02-20 07:33 | BI_ITS ---
MAMMOGRAPHY - BILATERAL SCREENING REASON FOR EXAM: Female, 77 years old. Routine annual screening examination. PERTINENT HISTORY: Non-contributory. TECHNIQUE: Digital bilateral breast mykel (3D mammographic acquisition) in the CC and MLO projections. 2-D mediolateral oblique (MLO) and craniocaudad (CC) views of both breasts were obtained. CAD: Full Field Digital Mammography with Computer Added Detection was performed. COMPARISON: Comparison is made with prior examination of January 04, 2022 and December 06, 2020. FINDINGS: Breast Composition: There are scattered areas of fibroglandular density. There are no dominant masses or suspicious calcifications. Stable benign-appearing bilateral axillary lymph nodes. No other significant abnormalities are identified. There has been no significant change since the prior study. BI/SCRN MAMM (CAD)W/MYKEL BILAT IMPRESSION: Stable bilateral screening mammogram. Yearly follow-up mammogram recommended. (A) ASSESSMENT CATEGORY: BIRADS Category 2: Benign. A letter regarding these results will be sent to the patient by the facility within 30 days. Approximately 10% of breast cancers are not detected by mammography. A normal mammogram should not delay biopsy of a clinically suspicious abnormality. [id number] Electronically Signed: Jhon Mccollum MD at 8:21 EDT ,
--- NOTE | 2023-02-20 07:58 | ECHOD_ITS ---
Reason For Study: PVCS Procedure This was a 2D Doppler, Color Flow transthoracic echocardiogram. Exam performed in department. Left Ventricle Normal LV size. The estimated ejection fraction is 70 %. Unable to assess diastolic dysfunction. No regional wall motion abnormalities noted. Right Ventricle Normal RV size. Normal systolic function. Atria Normal left atrium. Normal right atrium. No doppler evidence for ASD. Mitral Valve There is severe mitral annular calcification. There is no mitral valve stenosis. Trivial mitral valve insufficiency. Tricuspid Valve There is no tricuspid stenosis. Trivial tricuspid valve insufficiency. Aortic Valve Trisinus/trileaflet aortic valve. There is no aortic stenosis. Trivial aortic valve insufficiency. Pulmonic Valve There is no pulmonic valvular stenosis. No pulmonic valve insufficiency. Great Vessels Normal aortic root. Pericardium/Pleural No pericardial effusion. MMode/2D Measurements & Calculations LVIDd: 3.2 cm IVSd: 1.4 cm Ao root diam: 3.7 cm LVIDs: 2.5 cm LVPWd: 0.93 cm FS: 23.2 % LAV(MOD-bp): 33.6 ml LVAd ap4: 22.5 cm2 SV(MOD-sp4): 27.8 ml LAV(MOD-bp) Indexed: 18.8 ml/m2 LVLd ap4: 7.3 cm LAV(MOD-sp2): 35.8 ml EDV(MOD-sp4): 57.3 ml LAV(MOD-sp4): 29.2 ml EDV(sp4-el): 59.0 ml LVAs ap4: 14.3 cm2 LVLs ap4: 6.2 cm ESV(MOD-sp4): 29.5 ml ESV(sp4-el): 28.1 ml EF(MOD-sp4): 48.5 % EF(sp4-el): 52.4 % SV(sp4-el): 30.9 ml LA A4 area: 12.8 cm2 LA dimension(2D): 4.2 cm RA A4 area: 9.4 cm2 Time Measurements MV dec time: 0.21 sec Doppler Measurements & Calculations MV E max luiz: 72.6 cm/sec Lat Peak E' Luiz: 8.5 cm/sec Med Peak E' Luiz: 6.3 cm/sec MV A max luiz: 109.8 cm/sec E/E' lat: 8.5 E/E' med: 11.6 MV E/A: 0.66 MV V2 max: 110.2 cm/sec Ao V2 max: 116.4 cm/sec MV max P.9 mmHg MV dec slope: 349.2 cm/sec2 Ao max P.4 mmHg MV V2 mean: 67.5 cm/sec Ao V2 mean: 86.1 cm/sec MV mean P.0 mmHg Ao mean P.3 mmHg MV V2 VTI: 28.2 cm Ao V2 VTI: 25.9 cm AV (velocity ratio): 0.89 LV V1 max: 96.2 cm/sec MR max luiz: 512.7 cm/sec TR max luiz: 237.8 cm/sec LV V1 max P.7 mmHg MR max P.1 mmHg TR max P.6 mmHg LV V1 mean P.2 mmHg LV V1 mean: 70.9 cm/sec LV V1 VTI: 22.9 cm ECHO/Echo Complete Interpretation Summary The estimated ejection fraction is 70 %. Unable to assess diastolic dysfunction. Trivial mitral valve insufficiency. Trivial aortic valve insufficiency. Ordering Physician: Celia Coto Referring Physician: Celia Coto Performed By: Ashley Han RCS
== END | disposition home or self-care (01) ==
PROVIDERS: PCP Internal Medicine; Referring Provider Internal Medicine; Visit Provider Internal Medicine
DX: Z12.31 Encounter for screening mammogram for malignant neoplasm of breast (principal); I49.3 Ventricular premature depolarization
CPT/HCPCS: 77063; 77067; 93225; 93226; 93306

== ENCOUNTER → 2023-04-18 | Outpatient (CLI) | payer MEDICARE, OTHER, SELFPAY | END | disposition home or self-care (01) | LOC: PSN 09:30 | PROVIDERS: PCP Internal Medicine; Referring Provider Nurse Practitioner Family; Visit Provider Nurse Practitioner Family | DX: I49.3 Ventricular premature depolarization (principal); I10 Essential (primary) hypertension; E78.5 Hyperlipidemia, unspecified | CPT/HCPCS: 93225; 93226 ==

== ENCOUNTER → 2023-07-25 | Outpatient (CLI) | payer MEDICARE, OTHER, SELFPAY ==
[2023-07-25 10:15] LABS: Absolute Lymphocyte Count 1.81 X10^3/uL (0.83-4.51); Absolute Neutrophil Count 3.1 X10^3/uL (2.0-7.7); Basophil# 0.02 X10^3/uL; Basophil% 0.4 % (0-1); Eosinophil# 0.05 X10^3/uL; Eosinophils% 0.9 % (0-5); Hematocrit 43.7 % (37-47); Hemoglobin 14.3 g/dL (12.0-15.0); Lymphocyte # 1.81 X10^3/ul (0.83-4.51); Lymphocyte % 33.7 % (19-41); Mean Corp Hgb Conc 32.7 g/dL (32-36); Mean Corpuscular Hgb 31.3 pg (27.0-32.0); Mean Corpuscular Volume 95.6 fL (81-99); Mean Platelet Vol. 9.5 fl (6.2-12.0); Monocyte# 0.39 X10^3/uL; Monocyte% 7.3 % (0-10); NRBC Flagged by Analyzer 0 % (0-5); Neutrophil # 3.09 X10^3/uL (2.7-7.7); Neutrophil % 57.5 % (47-70); Platelet Count 289 K/mm3 (150-450); RBC Distribution Width CV 12.5 % (11.6-14.6); RBC Distribution Width SD 43.6 fl (35.1-43.9); Red Blood Count 4.57 M/mm3 (4.2-5.4); White Blood Count 5.4 K/mm3 (4.4-11.0)
[2023-07-25 10:54] LABS: Vitamin B12 > 2000 pg/mL (211-911); Vitamin D,25 Hydroxy 79.9 ng/mL
[2023-07-25 11:08] LABS: Microalbumin,Random Urine 7.3 mg/L (NO RANGE EST.); Microalbumin:Creatinine Ratio 10.1 mg/g CRE (<30 mg/g CRE)
[2023-07-25 11:10] LABS: Cholesterol 128 mg/dL (200); High Density Lipoprotein 62 mg/dL; Triglycerides 71 mg/dL; Very Low Density Lipoprotein 14 mg/dL (5-40)
[2023-07-25 11:13] LABS: Hemoglobin A1c 5.4 % (3.8-5.6)
[2023-07-25 15:55] LABS: AST(SGOT) 24 U/L (15-37); Alanine Aminotransfer ALT/SGPT 21 U/L (13-56); Albumin, Serum 3.7 g/dL (3.2-5.0); Alkaline Phosphatase 65 U/L (45-117); Anion Gap 4 (5-15); BUN 14 mg/dL (7-18); BUN/Creat Ratio 18.4 RATIO (10-20); Calcium,Total 9.2 mg/dL (8.5-10.1); Chloride 107 mmol/L (98-107); Creatinine, Serum 0.76 mg/dL (0.55-1.02); EST Glomerular Filtration Rate 78 mL/min (>60); Est Glom Filt Rate - Afr Amer 95 mL/min (>60); Globulin 3.8 g/dL (2.2-4.2); Glucose 95 mg/dL (74-106); Potassium 3.8 mmol/L (3.5-5.1); Protein, Total 7.5 g/dL (6.4-8.2); Sodium Level 140 mmol/L (136-145)
== END | disposition home or self-care (01) ==
PROVIDERS: PCP Internal Medicine; Referring Provider Internal Medicine; Visit Provider Internal Medicine
DX: I10 Essential (primary) hypertension (principal); E78.00 Pure hypercholesterolemia, unspecified; E55.9 Vitamin D deficiency, unspecified; R73.09 Other abnormal glucose
CPT/HCPCS: 36415; 80053; 80061; 82043; 82306; 82570; 82607; 82746; 83036; 85025

== ENCOUNTER → 2023-08-02 | Outpatient (CLI) | payer MEDICARE, OTHER, SELFPAY ==
--- NOTE | 2023-08-02 14:17 | US_ITS ---
STUDY: THYROID ULTRASOUND REASON FOR EXAM: Female, 77 years old. thyroid nodule TECHNIQUE: Ultrasound evaluation of the thyroid was performed with real-time and static clark-scale imaging. COMPARISON: 03.31.22 FINDINGS: RIGHT LOBE: The right lobe of the thyroid gland measures 4.9 x 1.9 cm. There is a heterogeneous echotexture. There are no demonstrated solid, cystic or complex lesions. 3 total nodules. The cystic nodule measures 6 x 5 x 4 mm. Second solid and cystic mid nodule measures 4 x 4 by 3 mm. Cystic Inferior nodule measures 5 x 4 x 3 mm. LEFT LOBE: The left lobe of the thyroid gland measures 5.4 x 2 cm. There is a heterogeneous echotexture. There are no demonstrated solid, cystic or complex lesions. 4 total nodules. Nodule #1 in the mid gland is 5 x 4 x 3mm and is cystic. Nodule #2 is solid and cystic and is 5 x 7 x5mm. Nodule #3 is 8 x 6 x 6 mm in the mid gland is solid. Nodule #4 is solid and cystic and measures 6 x 5 x3mm in the mid gland. ISTHMUS: The isthmus measures 2.4 mm. US/Thyroid IMPRESSION: Right nodules 1 and 3: This nodule is cystic or nearly completely cystic. TI-RADS points: 0. TI-RADS category: TR1. This nodule is benign and no FNA or follow-up is necessary. Right Nodule #2: This is stable in size. This nodule is solid or almost completely solid, hyperechoic or isoechoic, [id number], smoothly marginated and contains no echogenic foci. TI-RADS points: 3. TI-RADS category: TR3. This nodule is mildly suspicious but no FNA or follow-up is necessary given the small size of this nodule. The nodule 1 left nodules. This nodule is cystic or nearly completely cystic and slightly enlarged. TI-RADS points: 0. TI-RADS category: TR1. This nodule is benign and no FNA or follow-up is necessary. Left nodule #2 and #3 and #4: This nodule is mixed cystic and solid, hypoechoic, [id number], smoothly marginated and contains no echogenic foci. TI-RADS points: 3. TI-RADS category: TR3. This nodule is mildly suspicious but no FNA or follow-up is necessary given the small size of this nodule. Left nodule #1 and #3 is slightly larger. Electronically Signed: Ajith Oates MD at 16:24 EDT ,
== END | disposition home or self-care (01) ==
LOC: US 14:16
PROVIDERS: PCP Internal Medicine; Referring Provider Internal Medicine; Visit Provider Internal Medicine
DX: E04.1 Nontoxic single thyroid nodule (principal)
CPT/HCPCS: 76536

== ENCOUNTER → 2024-02-26 | Outpatient (CLI) | payer MEDICARE, OTHER, SELFPAY ==
--- NOTE | 2024-02-26 09:33 | BI_ITS ---
MAMMOGRAPHY - BILATERAL SCREENING REASON FOR EXAM: Female, 78 years old. Routine annual screening examination. PERTINENT HISTORY: Non-contributory. TECHNIQUE: Digital bilateral breast mykel (3D mammographic acquisition) in the CC and MLO projections. 2-D mediolateral oblique (MLO) and craniocaudad (CC) views of both breasts were obtained. CAD: Full Field Digital Mammography with Computer Added Detection was performed. COMPARISON: Comparison is made with prior study dated February 20, 2023 and January 04, 2022. FINDINGS: Breast Composition: There are scattered areas of fibroglandular density. There are no dominant masses or suspicious calcifications. Stable small benign appearing bilateral axillary lymph nodes. No other significant abnormalities are identified. There has been no significant change since the prior study. BI/SCRN MAMM (CAD)W/MYKEL BILAT IMPRESSION: Stable bilateral screening mammogram. Yearly follow-up mammogram recommended. (A) ASSESSMENT CATEGORY: BIRADS Category 2: Benign. A letter regarding these results will be sent to the patient by the facility within 30 days. Approximately 10% of breast cancers are not detected by mammography. A normal mammogram should not delay biopsy of a clinically suspicious abnormality. [id number] Electronically Signed: Jhon Mccollum MD at 11:20 EDT ,
--- NOTE | 2024-02-26 09:33 | BD_ITS ---
STUDY: DUAL ENERGY X-RAY ABSORPTIOMETRY / DXA REASON FOR EXAM: Female, 78 years old. [id number] TECHNIQUE: Bone Mineral Density (BMD) measurements of lumbar spine and bilateral hips were obtained. COMPARISON: Comparison is made with prior study dated January 04, 2022. FINDINGS: Lumbar Spine (L1-L4): g/cm2 (0.873) / T-score (-1.6) / Z-score (1.0) Findings are suggestive of osteopenia with a moderate fracture risk. Left Femur Total: g/cm2 (0.799) / T-score (-1.2) / Z-score (0.7) Left Femoral Neck: g/cm2 (0.618) / T-score (-2.1) / Z-score (0.1) Right Femur Total: g/cm2 (0.775) / T-score (-1.4) / Z-score (0.5) Right Femoral Neck: g/cm2 (0.618) / T-score (-2.1) / Z-score (0.1) The T-Scores on the most recent prior examination were: Lumbar Spine (L1-L4): There has been worsening of bone density since the previous examination. Left Femur Total: which represents a worsening of 2.1%. Right Femur Total: which represents a worsening of 1.9%. BD/Dexa Bone Density Study IMPRESSION: The patient is considered osteopenic as outlined below according to World Joni Organization (WHO) criteria with a high fracture risk. There has been worsening of bone density since the previous examination. Reference Information: The T-score is the number of standard deviations above or below the standard which is normal for young adults at their peak bone mineral density. The World Health Organization (WHO) interprets the T-scores as follows: Above -1 Normal bone density Between -1 and -2.5 Osteopenia Equal to / or below -2.5 Osteoporosis As a practical clinical guideline, osteopenia may be graded as follows: Mild -1 through -1.5 Moderate -1.6 through -2.0 Severe -2.1 through -2.4 The Z-score is the number of standard deviations above or below age-matched controls. A Z-score of less than -1.5 would be considered abnormal. References: 1. NIH Osteoporosis and Related Bone Diseases www osteo.org 2. International Society for Clinical Densitometry www iscd.org 3. National Osteoporosis Foundation www nof.org Electronically Signed: Jhon Mccollum MD at 15:30 EDT ,
== END | disposition home or self-care (01) ==
LOC: OPBD 09:29
PROVIDERS: PCP Internal Medicine; Referring Provider Internal Medicine; Visit Provider Internal Medicine
DX: Z12.31 Encounter for screening mammogram for malignant neoplasm of breast (principal); Z78.0 Asymptomatic menopausal state
CPT/HCPCS: 77063; 77067; 77080

== ENCOUNTER → 2024-04-23 | Outpatient (CLI) | payer MEDICARE, OTHER, SELFPAY ==
[2024-04-23 10:19] LABS: Absolute Lymphocyte Count 2.15 X10^3/uL (0.83-4.51); Absolute Neutrophil Count 3.2 X10^3/uL (2.0-7.7); Basophil# 0.03 X10^3/uL; Basophil% 0.5 % (0-1); Eosinophils% 1.7 % (0-5); Hematocrit 42.1 % (37-47); Hemoglobin 14.1 g/dL (12.0-15.0); Lymphocyte # 2.15 X10^3/ul (0.83-4.51); Lymphocyte % 35.7 % (19-41); Mean Corp Hgb Conc 33.5 g/dL (32-36); Mean Corpuscular Hgb 31.3 pg (27.0-32.0); Mean Corpuscular Volume 93.3 fL (81-99); Mean Platelet Vol. 9.3 fl (6.2-12.0); Monocyte# 0.51 X10^3/uL; Monocyte% 8.5 % (0-10); NRBC Flagged by Analyzer 0 % (0-5); Neutrophil # 3.23 X10^3/uL (2.7-7.7); Neutrophil % 53.4 % (47-70); Platelet Count 280 K/mm3 (150-450); RBC Distribution Width CV 12.6 % (11.6-14.6); RBC Distribution Width SD 43.2 fl (35.1-43.9); Red Blood Count 4.51 M/mm3 (4.2-5.4)
[2024-04-23 10:48] LABS: Vitamin B12 492 pg/mL (211-911)
[2024-04-23 10:53] LABS: Hemoglobin A1c 5.2 % (3.8-5.6)
[2024-04-23 11:01] LABS: AST(SGOT) 17 U/L (15-37); Alanine Aminotransfer ALT/SGPT 17 U/L (13-56); Albumin, Serum 3.5 g/dL (3.2-5.0); Alkaline Phosphatase 59 U/L (45-117); Anion Gap 2 (5-15); BUN 16 mg/dL (7-18); BUN/Creat Ratio 19.7 RATIO (10-20); Calcium,Total 9.3 mg/dL (8.5-10.1); Chloride 105 mmol/L (98-107); Cholesterol 132 mg/dL (200); Creatinine, Serum 0.81 mg/dL (0.55-1.02); EST Glomerular Filtration Rate 73 mL/min (>60); Est Glom Filt Rate - Afr Amer 88 mL/min (>60); Globulin 3.5 g/dL (2.2-4.2); Glucose 88 mg/dL (74-106); High Density Lipoprotein 64 mg/dL; Potassium 3.8 mmol/L (3.5-5.1); Sodium Level 138 mmol/L (136-145); Triglycerides 63 mg/dL; Very Low Density Lipoprotein 13 mg/dL (5-40)
== END | disposition home or self-care (01) ==
LOC: MTLAB 07:57
PROVIDERS: PCP Internal Medicine; Referring Provider Internal Medicine; Visit Provider Internal Medicine
DX: R73.09 Other abnormal glucose (principal); I10 Essential (primary) hypertension; E78.00 Pure hypercholesterolemia, unspecified; R79.89 Other specified abnormal findings of blood chemistry
CPT/HCPCS: 36415; 80053; 80061; 82607; 82746; 83036; 85025

== ENCOUNTER → 2024-08-07 | Outpatient (CLI) | payer MEDICARE, OTHER, SELFPAY ==
[2024-08-07 10:27] LABS: Absolute Neutrophil Count 3.5 X10^3/uL (2.0-7.7); Basophil# 0.02 X10^3/uL; Basophil% 0.3 % (0-1); Eosinophil# 0.08 X10^3/uL; Eosinophils% 1.3 % (0-5); Hematocrit 42.9 % (37-47); Lymphocyte % 32.4 % (19-41); Mean Corp Hgb Conc 32.6 g/dL (32-36); Mean Corpuscular Hgb 31.1 pg (27.0-32.0); Mean Corpuscular Volume 95.3 fL (81-99); Monocyte% 9.7 % (0-10); NRBC Flagged by Analyzer 0 % (0-5); Neutrophil # 3.45 X10^3/uL (2.7-7.7); Platelet Count 304 K/mm3 (150-450); RBC Distribution Width CV 12.8 % (11.6-14.6); RBC Distribution Width SD 45.4 fl (35.1-43.9); White Blood Count 6.2 K/mm3 (4.4-11.0)
[2024-08-07 10:55] LABS: ALB/GLOB Ratio 1.1 RATIO (0.9-2.4); AST(SGOT) 19 U/L (15-37); Alanine Aminotransfer ALT/SGPT 15 U/L (13-56); Albumin, Serum 3.7 g/dL (3.2-5.0); Alkaline Phosphatase 57 U/L (45-117); Anion Gap 7 (5-15); BUN 15 mg/dL (7-18); BUN/Creat Ratio 19.1 RATIO (10-20); Calcium,Total 9.6 mg/dL (8.5-10.1); Chloride 104 mmol/L (98-107); Cholesterol 198 mg/dL (200); Creatinine, Serum 0.79 mg/dL (0.55-1.02); EST Glomerular Filtration Rate 75 mL/min (>60); Est Glom Filt Rate - Afr Amer 91 mL/min (>60); Globulin 3.5 g/dL (2.2-4.2); Glucose 89 mg/dL (74-106); High Density Lipoprotein 63 mg/dL; Potassium 3.7 mmol/L (3.5-5.1); Protein, Total 7.2 g/dL (6.4-8.2); Sodium Level 141 mmol/L (136-145); Triglycerides 111 mg/dL; Very Low Density Lipoprotein 22 mg/dL (5-40)
[2024-08-07 12:17] LABS: Hemoglobin A1c 5.3 % (3.8-5.6)
[2024-08-07 16:03] LABS: Microalbumin,Random Urine 6.2 mg/L (NO RANGE EST.); Microalbumin:Creatinine Ratio 8.1 mg/g CRE (<30 mg/g CRE)
== END | disposition home or self-care (01) ==
PROVIDERS: PCP Internal Medicine; Referring Provider Internal Medicine; Visit Provider Internal Medicine
DX: R73.09 Other abnormal glucose (principal); E78.00 Pure hypercholesterolemia, unspecified
CPT/HCPCS: 36415; 80053; 80061; 82043; 82570; 83036; 85025

== ENCOUNTER → 2024-08-22 | Outpatient (CLI) | payer MEDICARE, OTHER, SELFPAY ==
--- NOTE | 2024-08-22 11:54 | US_ITS ---
EXAM: US SOFT TISSUES HEAD AND NECK, THYROID CLINICAL INDICATION: thyroid nodule TECHNIQUE: Greyscale and color doppler imaging was performed of the thyroid gland. COMPARISON: 08/02/2023. FINDINGS: LEFT THYROID LOBE: Cystic nodule measuring 4.5 x 3 x 4 mm left lobe of the thyroid. Solid nodule measuring 5 x 4 x 4 mm left lobe of the thyroid that is isoechoic, wider than tall, smooth, without echogenic foci. The left lobe of the thyroid lobe measures 6.0 x 1.9 x 2.0 cm. RIGHT THYROID LOBE: Spongiform nodule measuring 4 x 3 x 4 mm right lobe of the thyroid. Cystic nodule measuring 5 x 4 x 4 mm right lobe of the thyroid. Cystic nodule measuring 4 x 2 x 2.5 mm right lobe of the thyroid. Homogeneous echotexture with normal vascularity. The right lobe of the thyroid lobe measures 5.7 x 2.2 x 2.2 cm. ISTHMUS: Unremarkable. No thyroid nodules are present. The isthmus measures 0.4 cm in thickness. US/Thyroid IMPRESSION: 1. Spongiform nodule measuring 4 x 3 x 4 mm right lobe of the thyroid. TI-RADS points: 0. TI-RADS category: TR1. This nodule is benign and no FNA or follow-up is necessary. 2. Cystic nodule measuring 5 x 4 x 4 mm right lobe of the thyroid. TI-RADS points: 0. TI-RADS category: TR1. This nodule is benign and no FNA or follow-up is necessary. 3. Cystic nodule measuring 4 x 2 x 2.5 mm right lobe of the thyroid. TI-RADS points: 0. TI-RADS category: TR1. This nodule is benign and no FNA or follow-up is necessary. 4. Cystic nodule measuring 4.5 x 3 x 4 mm left lobe of the thyroid. TI-RADS points: 0. TI-RADS category: TR1. This nodule is benign and no FNA or follow-up is necessary. 5. Solid nodule measuring 5 x 4 x 4 mm left lobe of the thyroid that is isoechoic, wider than tall, smooth, without echogenic foci. TI-RADS points: 3. TI-RADS category: TR3. This nodule is mildly suspicious but no FNA or follow-up is necessary given the small size of this nodule. Electronically Signed: Beniot Palacio MD at 7:56 EDT ,
== END | disposition home or self-care (01) ==
LOC: US 11:53
PROVIDERS: PCP Internal Medicine; Referring Provider Internal Medicine; Visit Provider Internal Medicine
DX: E04.1 Nontoxic single thyroid nodule (principal)
CPT/HCPCS: 76536

== ENCOUNTER → 2024-11-17 | Outpatient (CLI) | payer MEDICARE, OTHER, SELFPAY ==
[2024-11-17 10:32] LABS: Absolute Lymphocyte Count 2.44 X10^3/uL (0.83-4.51); Absolute Neutrophil Count 3.3 X10^3/uL (2.0-7.7); Basophil# 0.02 X10^3/uL; Basophil% 0.3 % (0-1); Eosinophil# 0.16 X10^3/uL; Eosinophils% 2.5 % (0-5); Hematocrit 42.6 % (37-47); Lymphocyte # 2.44 X10^3/ul (0.83-4.51); Lymphocyte % 37.5 % (19-41); Mean Corp Hgb Conc 32.9 g/dL (32-36); Mean Corpuscular Hgb 30.6 pg (27.0-32.0); Mean Corpuscular Volume 93.2 fL (81-99); Mean Platelet Vol. 8.9 fl (6.2-12.0); Monocyte# 0.57 X10^3/uL; Monocyte% 8.8 % (0-10); NRBC Flagged by Analyzer 0 % (0-5); Neutrophil # 3.29 X10^3/uL (2.7-7.7); Neutrophil % 50.6 % (47-70); Platelet Count 265 K/mm3 (150-450); RBC Distribution Width CV 12.8 % (11.6-14.6); RBC Distribution Width SD 43.4 fl (35.1-43.9); Red Blood Count 4.57 M/mm3 (4.2-5.4); White Blood Count 6.5 K/mm3 (4.4-11.0)
[2024-11-17 10:50] LABS: Vitamin B12 530 pg/mL (211-911)
[2024-11-17 10:58] LABS: AST(SGOT) 22 U/L (15-37); Alanine Aminotransfer ALT/SGPT 17 U/L (13-56); Albumin, Serum 3.5 g/dL (3.2-5.0); Alkaline Phosphatase 68 U/L (45-117); Anion Gap 6 (5-15); BUN 11 mg/dL (7-18); BUN/Creat Ratio 14.6 RATIO (10-20); Calcium,Total 9.3 mg/dL (8.5-10.1); Chloride 103 mmol/L (98-107); Creatinine, Serum 0.76 mg/dL (0.55-1.02); EST Glomerular Filtration Rate 79 mL/min (>60); Est Glom Filt Rate - Afr Amer 95 mL/min (>60); Globulin 3.6 g/dL (2.2-4.2); Glucose 88 mg/dL (74-106); Potassium 3.7 mmol/L (3.5-5.1); Protein, Total 7.1 g/dL (6.4-8.2); Sodium Level 140 mmol/L (136-145)
[2024-11-17 11:29] LABS: Hemoglobin A1c 5.3 % (3.8-5.6)
== END | disposition home or self-care (01) ==
LOC: MTLAB 07:30
PROVIDERS: PCP Internal Medicine; Referring Provider Internal Medicine; Visit Provider Internal Medicine
DX: I10 Essential (primary) hypertension (principal); R79.89 Other specified abnormal findings of blood chemistry; E55.9 Vitamin D deficiency, unspecified; E04.1 Nontoxic single thyroid nodule
CPT/HCPCS: 36415; 80053; 82306; 82607; 82746; 83036; 84443; 85025

== ENCOUNTER → 2025-02-17 | Outpatient (CLI) | payer MEDICARE, OTHER, SELFPAY ==
[2025-02-17 10:02] LABS: Absolute Lymphocyte Count 2.02 X10^3/uL (0.83-4.51); Absolute Neutrophil Count 2.8 X10^3/uL (2.0-7.7); Basophil# 0.03 X10^3/uL; Basophil% 0.6 % (0-1); Eosinophil# 0.15 X10^3/uL; Eosinophils% 2.8 % (0-5); Hematocrit 40.4 % (37-47); Hemoglobin 13.7 g/dL (12.0-15.0); Lymphocyte # 2.02 X10^3/ul (0.83-4.51); Lymphocyte % 37.1 % (19-41); Mean Corp Hgb Conc 33.9 g/dL (32-36); Mean Corpuscular Hgb 31.6 pg (27.0-32.0); Mean Corpuscular Volume 93.3 fL (81-99); Mean Platelet Vol. 9.2 fl (6.2-12.0); Monocyte# 0.46 X10^3/uL; Monocyte% 8.5 % (0-10); NRBC Flagged by Analyzer 0 % (0-5); Neutrophil # 2.76 X10^3/uL (2.7-7.7); Neutrophil % 50.6 % (47-70); Platelet Count 279 K/mm3 (150-450); RBC Distribution Width CV 12.9 % (11.6-14.6); RBC Distribution Width SD 44.1 fl (35.1-43.9); Red Blood Count 4.33 M/mm3 (4.2-5.4); White Blood Count 5.4 K/mm3 (4.4-11.0)
[2025-02-17 10:29] LABS: Hemoglobin A1c 5.4 % (<=5.6)
[2025-02-17 11:17] LABS: ALB/GLOB Ratio 1.5 RATIO (0.9-2.4); AST(SGOT) 24 U/L (<=31); Alanine Aminotransfer ALT/SGPT 10 U/L (<=34); Albumin, Serum 4.1 g/dL (3.4-4.8); Alkaline Phosphatase 62 U/L (35-104); Anion Gap 11 (5-15); BUN 10 mg/dL (4-19); BUN/Creat Ratio 12.6 RATIO (10-20); Calcium,Total 9.4 mg/dL (7.6-11.0); Carbon Dioxide 28.1 mmol/L (21.0-32.0); Chloride 103 mmol/L (98-108); Cholesterol 141 mg/dL (<=200); Creatinine, Serum 0.76 mg/dL (0.70-1.20); EST Glomerular Filtration Rate 80 (>60); Globulin 2.7 g/dL (2.2-4.2); Glucose 90 mg/dL (70-99); High Density Lipoprotein 58 mg/dL; Low Density Lipoprotein Calc. 68 mg/dL; Protein, Total 6.8 g/dL (5.9-8.4); Sodium Level 142 mmol/L (133-145); Total Bilirubin 0.45 mg/dL (0.00-1.30); Triglycerides 74 mg/dL; Very Low Density Lipoprotein 15 mg/dL (5-40); cholesterol:hdl ratio screen 2.42
[2025-02-17 18:34] LABS: Microalbumin,Random Urine < 12.0 mg/L (NO RANGE EST.); Microalbumin:Creatinine Ratio UNABLE TO CALCULATE mg/g CRE
== END | disposition home or self-care (01) ==
PROVIDERS: PCP Internal Medicine; Referring Provider Internal Medicine; Visit Provider Internal Medicine
DX: R73.09 Other abnormal glucose (principal); E55.9 Vitamin D deficiency, unspecified; I10 Essential (primary) hypertension; E78.00 Pure hypercholesterolemia, unspecified
CPT/HCPCS: 36415; 80053; 80061; 82043; 82306; 82570; 83036; 85025

== ENCOUNTER → 2025-06-10 | Outpatient (CLI) | payer MEDICARE, OTHER, SELFPAY ==
[2025-06-10 11:04] LABS: Hematocrit 42.4 % (37-47); Hemoglobin 14.0 g/dL (12.0-15.0); Immature Granulocytes Count 0.020 X10^3/uL (0.0-0.0); Mean Corp Hgb Conc 33.0 g/dL (32-36); Mean Corpuscular Volume 94.6 fL (81-99); Mean Platelet Vol. 9.5 fl (6.2-12.0); NRBC Flagged by Analyzer 0 % (0-5); Platelet Count 290 K/mm3 (150-450); RBC Distribution Width CV 13.1 % (11.6-14.6); RBC Distribution Width SD 44.6 fl (35.1-43.9); Red Blood Count 4.48 M/mm3 (4.2-5.4); White Blood Count 6.2 K/mm3 (4.4-11.0)
[2025-06-10 11:36] LABS: AST(SGOT) 22 U/L (<=31); Alanine Aminotransfer ALT/SGPT 12 U/L (<=34); Albumin, Serum 4.2 g/dL (3.4-4.8); Alkaline Phosphatase 58 U/L (35-104); Anion Gap 12 (5-15); BUN 13 mg/dL (4-19); BUN/Creat Ratio 15.5 RATIO (10-20); Calcium,Total 9.8 mg/dL (7.6-11.0); Carbon Dioxide 27.5 mmol/L (21.0-32.0); Chloride 102 mmol/L (98-108); Globulin 2.8 g/dL (2.2-4.2); Glucose 103 mg/dL (70-99); Magnesium 2.2 mg/dL (1.5-2.2); Potassium 4.7 mmol/L (3.3-5.1); Troponin T High Sensitivity 9 ng/L (<=14)
== END | disposition home or self-care (01) ==
LOC: LABSPEC 10:50
PROVIDERS: PCP Internal Medicine; Referring Provider Internal Medicine; Visit Provider Internal Medicine
DX: R00.1 Bradycardia, unspecified (principal)
CPT/HCPCS: 80053; 83735; 84443; 84484; 85025

== ENCOUNTER → 2025-06-24 | Outpatient (CLI) | payer MEDICARE, OTHER, SELFPAY | END | disposition home or self-care (01) | LOC: PSN 11:45 | PROVIDERS: PCP Internal Medicine; Referring Provider Internal Medicine; Visit Provider Internal Medicine | DX: I49.3 Ventricular premature depolarization (principal) | CPT/HCPCS: 93225; 93226 ==

== ENCOUNTER → 2025-06-30 | Outpatient (CLI) | payer MEDICARE, OTHER, SELFPAY ==
--- NOTE | 2025-06-30 12:06 | BI_ITS ---
EXAM: SCRN MAMM (CAD)W/MYKEL BILAT DATE: 06/30/2025 CLINICAL HISTORY: F, Age 79 y/o , SCREENING No family history. TECHNIQUE: Procedure Code: [id number] Modality: MG Procedure: SCRN MAMM (CAD)W/MYKEL BILAT COMPARISON: Prior exam(s) dated February 26, 2024.. FINDINGS: TISSUE DENSITY: There are scattered areas of fibroglandular density. Bilateral Breast Mammographic Findings: No significant masses, calcifications or other abnormalities are identified. Stable bilateral fat containing axillary lymph nodes. No suspicious masses, areas of developing architectural distortion, or suspicious calcifications. There has been no significant interval change. BI/SCRN MAMM (CAD)W/MYKEL BILAT IMPRESSION: Stable screening bilateral mammogram. OVERALL FINAL ASSESSMENT BI-RADS 2: BENIGN RECOMMENDATION: Routine annual follow-up in 1 Year A letter with findings and recommendations will be mailed to the patient. Reading Location: [place] [id number]
== END | disposition home or self-care (01) ==
PROVIDERS: PCP Internal Medicine; Referring Provider Internal Medicine; Visit Provider Internal Medicine
DX: Z12.31 Encounter for screening mammogram for malignant neoplasm of breast (principal)
CPT/HCPCS: 77063; 77067

== ENCOUNTER → 2025-08-05 | Outpatient (CLI) | payer MEDICARE, OTHER, SELFPAY ==
--- NOTE | 2025-08-05 08:55 | STRESSREP_ITS ---
Stress Test Report Exercise myocardial perfusion stress test. 79-year-old lady with a history of arrhythmias. Stress protocol: Resting EKG demonstrates normal sinus rhythm with a rate of 70 bpm resting blood pressure is 134/82 mmHg. The patient exercised according to the regular Sp protocol for a total duration of 6 minutes attaining a maximum heart rate of 141 bpm which was 99% of maximum predicted heart rate; the maximum workload was 7 metabolic equivalents. At rest there were no ST or T wave changes noted to suggest ischemia and at peak exercise upsloping ST changes only were noted which did not meet the criteria for ischemia. No clinical angina was noted the test was terminated due to the target heart rate being achieved/fatigue. The peak blo od pressure was 160/70 mmHg. Rate-pressure product was 20,900. Myocardial perfusion protocol. 11.1 mCi of technetium 99m sestamibi was injected at rest. The patient exercised according to regular Sp protocol for total duration of 6 minutes and at peak exercise 33.9 mCi of technetium 99m sestamibi was injected stress images were obtained stress and rest images were reconstructed in comparing the short axis vertical long and horizontal long axis. Gated images were also obtained. Perfusion SPECT analysis: Review of the stress images demonstrate normal uptake of tracer noted in all areas of the myocardium. The resting images similarly demonstrate normal uptake of tracer noted in all areas of the myocardium. No areas of reversibility are noted to suggest ischemia no previous infarct was noted. Gated SPECT analysis: The gated ejection fraction is 80%. Conclusion: Normal exercise myocardial perfusion stress test at a moderate workload.
== END | disposition home or self-care (01) ==
LOC: CVS 06:26
PROVIDERS: PCP Internal Medicine; Referring Provider Physician Assistant Medical; Visit Provider Physician Assistant Medical
DX: I25.10 Atherosclerotic heart disease of native coronary artery without angina pectoris (principal); I49.3 Ventricular premature depolarization
CPT/HCPCS: 78452; 93017; A9500; A4216

== ENCOUNTER → 2025-08-19 | Outpatient (CLI) | payer MEDICARE, OTHER, SELFPAY | END | disposition home or self-care (01) | LOC: PSN 11:52 | PROVIDERS: PCP Internal Medicine; Referring Provider Physician Assistant Medical; Visit Provider Physician Assistant Medical | DX: I49.3 Ventricular premature depolarization (principal) | CPT/HCPCS: 93225; 93226 ==

== ENCOUNTER → 2025-09-14 | Outpatient (CLI) | payer MEDICARE, OTHER, SELFPAY ==
[2025-09-14 12:27] LABS: Hematocrit 42.4 % (37-47); Hemoglobin 13.9 g/dL (12.0-15.0); Immature Granulocytes Count 0.010 X10^3/uL (0.0-0.0); Mean Corp Hgb Conc 32.8 g/dL (32-36); Mean Corpuscular Volume 95.3 fL (81-99); Mean Platelet Vol. 9.6 fl (6.2-12.0); NRBC Flagged by Analyzer 0 % (0-5); Platelet Count 296 K/mm3 (150-450); RBC Distribution Width CV 12.7 % (11.6-14.6); RBC Distribution Width SD 44.0 fl (35.1-43.9); Red Blood Count 4.45 M/mm3 (4.2-5.4); White Blood Count 6.1 K/mm3 (4.4-11.0)
[2025-09-14 12:56] LABS: AST(SGOT) 22 U/L (<=31); Alanine Aminotransfer ALT/SGPT 11 U/L (<=34); Albumin, Serum 4.2 g/dL (3.4-4.8); Alkaline Phosphatase 50 U/L (35-104); Anion Gap 10 (5-15); BUN 20 mg/dL (4-19); BUN/Creat Ratio 24.1 RATIO (10-20); Calcium,Total 9.4 mg/dL (7.6-11.0); Carbon Dioxide 29.6 mmol/L (21.0-32.0); Chloride 102 mmol/L (98-108); Cholesterol 133 mg/dL (<=200); Globulin 2.8 g/dL (2.2-4.2); Glucose 92 mg/dL (70-99); Low Density Lipoprotein Calc. 63 mg/dL; Potassium 4.0 mmol/L (3.3-5.1); Triglycerides 50 mg/dL; Very Low Density Lipoprotein 10 mg/dL (5-40); cholesterol:hdl ratio screen 2.26
[2025-09-14 13:32] LABS: Creatinine, Urine (random) 91.30 mg/dL (28.00-217.00); Microalbumin,Random Urine < 12.0 mg/L (<20 mg/L)
== END | disposition home or self-care (01) ==
LOC: MTLAB 09:27
PROVIDERS: PCP Internal Medicine; Referring Provider Internal Medicine; Visit Provider Internal Medicine
DX: R73.09 Other abnormal glucose (principal); I10 Essential (primary) hypertension
CPT/HCPCS: 36415; 80053; 80061; 82043; 82570; 83036; 85025